=== PATIENT | male | born 1990 | race Two or more races ===

== ENCOUNTER 2021-12-29 04:27 | Inpatient (IN) | payer OTHER ==
[2021-12-29] MEDS ORDERED: MAG HYDROX/AL HYDROX/SIMETH 30 ML UNIT-DOSE CUP PO PRN (04:34)
[2021-12-29] MEDS ORDERED: MAGNESIUM CITRATE 300 ML BOTTLE PO PRN (04:34)
[2021-12-29] MEDS ORDERED: MAGNESIUM HYDROX 2400MG/30ML ORAL SUSPENSION 30 ML CUP PO PRN (04:34)
[2021-12-29] MEDS ORDERED: DICYCLOMINE HCL 10 MG CAPSULE PO PRN (04:34)
[2021-12-29] MEDS ORDERED: P-EPHED 60MG/TRIPROLIDI 2.5MG TABLET PO PRN (04:34)
[2021-12-29] MEDS ORDERED: NICOTINE POLACRILEX 2 MG GUM BUC PRN (04:34)
[2021-12-29] MEDS ORDERED: ONDANSETRON *ODT* 4 MG TABLET SL PRN (04:34)
[2021-12-29] MEDS ORDERED: BENZOCAINE/MENTHOL (CHLORASEPTIC ) LOZENGE MM PRN (04:34)
[2021-12-29] MEDS ORDERED: ACETAMINOPHEN 325 MG TABLET (FP) PO PRN (04:34)
[2021-12-29] MEDS ORDERED: BISMUTH SUBSALICYLATE 524 MG/30 ML PO PRN (04:34)
[2021-12-29] MEDS ORDERED: LOPERAMIDE HCL 2 MG CAPSULE PO PRN (04:34)
[2021-12-29] MEDS ORDERED: guaiFENesin 200 MG/10 ML 10 ML UNIT-DOSE CUPS PO PRN (04:34)
[2021-12-29 07:10] VITALS: BMI 22.3
[2021-12-29] MEDS ORDERED: methaDONE HCL 10 MG TABLET PO SCH (09:30)
[2021-12-29] MEDS ORDERED: chlordiazePOXIDE HCL 25 MG CAPSULE PO PRN (09:53)
[2021-12-29] MEDS ORDERED: methaDONE HCL 10 MG TABLET ONE (09:53)
[2021-12-29] MEDS ORDERED: methaDONE HCL 40 MG DISPERSABLE TABLET ONE (09:53)
[2021-12-29] MEDS ORDERED: ALBUTEROL SO4 HFA INHALER IH PRN (09:53)
[2021-12-29] MEDS: methaDONE 40 MG, methaDONE 30 MG PO SCH (10:21)
[2021-12-29] MEDS: PRENATAL VITAMINS W/ FOLIC ACID TABLET (FP) PO SCH (10:21)
[2021-12-29] MEDS: NICOTINE 14 MG/24 HOURS TOPICAL PATCH TD SCH (10:21)
[2021-12-29] MEDS: BICTEGRAV/EMTRICIT/TENOFOV (BIKTARVY) 50-200-25 MG TABLET PO SCH (11:57)
[2021-12-29] MEDS: chlordiazePOXIDE HCL 25 MG CAPSULE PO SCH ×3 (11:57→22:35)
[2021-12-29] MEDS: MELATONIN 5 MG TABLETS PO SCH (22:35)
[2021-12-29] MEDS: THIAMINE HCL 100 MG TABLET (FP) PO SCH (22:35)
[2021-12-30] MEDS ORDERED: methaDONE HCL 10 MG TABLET ONE (04:47)
[2021-12-30] MEDS ORDERED: methaDONE HCL 40 MG DISPERSABLE TABLET ONE (04:48)
[2021-12-30] MEDS: chlordiazePOXIDE HCL 25 MG CAPSULE PO SCH ×4 (05:31→22:53)
[2021-12-30] MEDS: methaDONE 40 MG, methaDONE 30 MG PO SCH (05:33)
[2021-12-30] MEDS ORDERED: OLANZapine 10 MG TABLET PO SCH (10:00)
[2021-12-30] MEDS: PRENATAL VITAMINS W/ FOLIC ACID TABLET (FP) PO SCH (10:22)
[2021-12-30] MEDS: BICTEGRAV/EMTRICIT/TENOFOV (BIKTARVY) 50-200-25 MG TABLET PO SCH (10:22)
[2021-12-30] MEDS: NICOTINE 14 MG/24 HOURS TOPICAL PATCH TD SCH (10:22)
[2021-12-30 10:48] LABS: HEMATOCRIT 36.7 % (35.4-49); HEMOGLOBIN 11.9 GM/dL (11.7-16.9); MCH 29.7 pg (25.7-33.7); MCHC 32.5 g/dl (32.0-35.9); MEAN CELL VOLUME 91.5 fl (80-96); MEAN PLT VOLUME 8.6 fl (7.5-11.1); PLATELET COUNT 294 10^3/uL (134-434); RBC 4.01 M/mm3 (4.00-5.60); RDW 14.5 % (11.9-15.9); WHITE BLOOD COUNT 4.2 K/mm3 (4.0-10.0)
[2021-12-30 11:05] LABS: CALCIUM 8.8 mg/dL (8.5-10.1)
[2021-12-30 11:06] LABS: ALBUMIN 3.4 g/dl (3.4-5.0); BLOOD UREA NITROGEN 6.6 mg/dL (7-18)
[2021-12-30 11:09] LABS: BILIRUBIN,TOTAL 0.4 mg/dL (0.2-1); CREATININE 0.9 mg/dL (0.55-1.3); TOT PROT 6.6 g/dl (6.4-8.2)
[2021-12-30] MEDS: METHOCARBAMOL 500 MG TABLET PO PRN (14:47)
[2021-12-30] MEDS: IBUPROFEN 400 MG TABLET (FP) PO PRN (20:20)
[2021-12-30] MEDS: hydrOXYzine PAMOATE 25 MG CAPSULE (FP) PO PRN (20:21)
[2021-12-30] MEDS: THIAMINE HCL 100 MG TABLET (FP) PO SCH (22:56)
[2021-12-30] MEDS: MELATONIN 5 MG TABLETS PO SCH (22:56)
[2021-12-30] MEDS: OLANZapine 10 MG TABLET PO SCH (22:56)
[2021-12-31] MEDS ORDERED: methaDONE HCL 10 MG TABLET ONE (04:53)
[2021-12-31] MEDS ORDERED: methaDONE HCL 40 MG DISPERSABLE TABLET ONE (04:53)
[2021-12-31] MEDS: chlordiazePOXIDE HCL 25 MG CAPSULE PO SCH ×4 (05:40→22:13)
[2021-12-31] MEDS: methaDONE 40 MG, methaDONE 30 MG PO SCH (05:40)
[2021-12-31] MEDS: NICOTINE 14 MG/24 HOURS TOPICAL PATCH TD SCH (10:26)
[2021-12-31] MEDS: PRENATAL VITAMINS W/ FOLIC ACID TABLET (FP) PO SCH (10:26)
[2021-12-31] MEDS: BICTEGRAV/EMTRICIT/TENOFOV (BIKTARVY) 50-200-25 MG TABLET PO SCH (10:26)
[2021-12-31] MEDS: ACETAMINOPHEN 325 MG TABLET (FP) PO PRN (17:43)
[2021-12-31] MEDS: MELATONIN 5 MG TABLETS PO SCH (22:11)
[2021-12-31] MEDS: THIAMINE HCL 100 MG TABLET (FP) PO SCH (22:12)
[2021-12-31] MEDS: OLANZapine 10 MG TABLET PO SCH (22:12)
[2021-12-31] MEDS: IBUPROFEN 400 MG TABLET (FP) PO PRN (22:16)
[2021-12-31] MEDS: METHOCARBAMOL 500 MG TABLET PO PRN (22:16)
[2022-01-01] MEDS ORDERED: chlordiazePOXIDE HCL 10 MG CAPSULE PO PRN
[2022-01-01] MEDS ORDERED: methaDONE HCL 10 MG TABLET ONE (04:26)
[2022-01-01] MEDS ORDERED: methaDONE HCL 40 MG DISPERSABLE TABLET ONE (04:27)
[2022-01-01] MEDS ORDERED: chlordiazePOXIDE HCL 10 MG CAPSULE PO SCH (05:00)
[2022-01-01] MEDS: methaDONE 40 MG, methaDONE 30 MG PO SCH (05:11)
[2022-01-01] MEDS ORDERED: NICOTINE 10 MG CARTRIDGE (INHALER) IH PRN (09:01)
[2022-01-01] MEDS: BICTEGRAV/EMTRICIT/TENOFOV (BIKTARVY) 50-200-25 MG TABLET PO SCH (10:11)
[2022-01-01] MEDS: PRENATAL VITAMINS W/ FOLIC ACID TABLET (FP) PO SCH (10:11)
[2022-01-01] MEDS: NICOTINE 14 MG/24 HOURS TOPICAL PATCH TD SCH (10:12)
[2022-01-01] MEDS: diazePAM 5 MG TABLET PO SCH ×3 (14:58→22:07)
[2022-01-01] MEDS: OLANZapine 10 MG TABLET PO SCH (22:07)
[2022-01-01] MEDS: MELATONIN 5 MG TABLETS PO SCH (22:07)
[2022-01-01] MEDS: THIAMINE HCL 100 MG TABLET (FP) PO SCH (22:07)
[2022-01-02] MEDS ORDERED: methaDONE HCL 40 MG DISPERSABLE TABLET ONE (04:49)
[2022-01-02] MEDS ORDERED: methaDONE HCL 10 MG TABLET ONE (04:49)
[2022-01-02] MEDS ORDERED: chlordiazePOXIDE HCL 10 MG CAPSULE PO SCH (05:00)
[2022-01-02] MEDS: hydrOXYzine PAMOATE 25 MG CAPSULE (FP) PO PRN ×3 (05:22→22:07)
[2022-01-02] MEDS: methaDONE 40 MG, methaDONE 30 MG PO SCH (05:22)
[2022-01-02] MEDS: diazePAM 5 MG TABLET PO SCH ×3 (05:22→22:05)
[2022-01-02] MEDS: BICTEGRAV/EMTRICIT/TENOFOV (BIKTARVY) 50-200-25 MG TABLET PO SCH (09:19)
[2022-01-02] MEDS: PRENATAL VITAMINS W/ FOLIC ACID TABLET (FP) PO SCH (09:19)
[2022-01-02] MEDS: IBUPROFEN 600 MG TABLET (FP) PO PRN ×2 (09:20→16:24)
[2022-01-02] MEDS: NICOTINE 14 MG/24 HOURS TOPICAL PATCH TD SCH (09:23)
[2022-01-02] MEDS: METHOCARBAMOL 500 MG TABLET PO PRN (17:57)
[2022-01-02] MEDS: MELATONIN 5 MG TABLETS PO SCH (22:05)
[2022-01-02] MEDS: THIAMINE HCL 100 MG TABLET (FP) PO SCH (22:05)
[2022-01-02] MEDS: OLANZapine 10 MG TABLET PO SCH (22:05)
[2022-01-03] MEDS ORDERED: methaDONE HCL 10 MG TABLET ONE (04:36)
[2022-01-03] MEDS ORDERED: methaDONE HCL 40 MG DISPERSABLE TABLET ONE (04:37)
[2022-01-03] MEDS ORDERED: chlordiazePOXIDE HCL 10 MG CAPSULE PO ONE (05:00)
[2022-01-03] MEDS: methaDONE 40 MG, methaDONE 30 MG PO SCH (05:07)
[2022-01-03] MEDS: IBUPROFEN 400 MG TABLET (FP) PO PRN (05:09)
[2022-01-03] MEDS ORDERED: diazePAM 5 MG TABLET PO ONE (06:00)
[2022-01-03] MEDS: ACETAMINOPHEN 325 MG TABLET (FP) PO PRN (07:12)
[2022-01-03 09:35] VITALS: BP 122/74; PULSE 86; TEMP 96.9
[2022-01-03] MEDS: BICTEGRAV/EMTRICIT/TENOFOV (BIKTARVY) 50-200-25 MG TABLET PO SCH (10:09)
[2022-01-03] MEDS: PRENATAL VITAMINS W/ FOLIC ACID TABLET (FP) PO SCH (10:09)
[2022-01-03] MEDS: NICOTINE 14 MG/24 HOURS TOPICAL PATCH TD SCH (10:09)
== END 2022-01-03 10:38 | disposition home or self-care (01) | DRG 773 ==
LOC: YASAS 04:27 → UNDOADMIN 04:28 → Y3N 04:28 → UNDODISIN 01-03 10:38
PROVIDERS: ADMIT Allergy & Immunology; ATTEND Surgery
PROC: HZ2ZZZZ Detoxification Services for Substance Abuse Treatment (ICD-10-PCS; principal; 2021-12-29)
DX: F11.23 Opioid dependence with withdrawal (principal); F14.20 Cocaine dependence, uncomplicated; F15.20 Other stimulant dependence, uncomplicated; F12.20 Cannabis dependence, uncomplicated; F17.210 Nicotine dependence, cigarettes, uncomplicated; F19.24 Other psychoactive substance dependence with psychoactive substance-induced mood disorder; F31.9 Bipolar disorder, unspecified; F43.10 Post-traumatic stress disorder, unspecified; Z21 Asymptomatic human immunodeficiency virus [HIV] infection status; Z91.51 Personal history of suicidal behavior; Z91.19 Patient's noncompliance with other medical treatment and regimen
CPT/HCPCS: 36415; 80053; 85027; 86593; 86780; 87811; C9803-CS; U0003; U0005

== ENCOUNTER 2022-01-03 11:19 | Inpatient (IN) | payer OTHER ==
[2022-01-03 11:46] VITALS: BMI 23.0
[2022-01-03] MEDS ORDERED: MAG HYDROX/AL HYDROX/SIMETH 30 ML UNIT-DOSE CUP PO PRN (12:00)
[2022-01-03] MEDS ORDERED: guaiFENesin 200 MG/10 ML 10 ML UNIT-DOSE CUPS PO PRN (12:00)
[2022-01-03] MEDS ORDERED: MAGNESIUM HYDROX 2400MG/30ML ORAL SUSPENSION 30 ML CUP PO PRN (12:00)
[2022-01-03] MEDS ORDERED: ACETAMINOPHEN 325 MG TABLET (FP) PO PRN (12:00)
[2022-01-03] MEDS ORDERED: P-EPHED 60MG/TRIPROLIDI 2.5MG TABLET PO PRN (12:00)
[2022-01-03] MEDS ORDERED: MAGNESIUM CITRATE 300 ML BOTTLE PO PRN (12:00)
[2022-01-03] MEDS ORDERED: LOPERAMIDE HCL 2 MG CAPSULE PO PRN (12:00)
[2022-01-03] MEDS: hydrOXYzine PAMOATE 25 MG CAPSULE (FP) PO SCH ×3 (14:00→21:01)
[2022-01-03] MEDS: NICOTINE 10 MG CARTRIDGE (INHALER) IH PRN (14:01)
[2022-01-03] MEDS: MELATONIN 5 MG TABLETS PO SCH (21:01)
[2022-01-03] MEDS: THIAMINE HCL 100 MG TABLET (FP) PO SCH (21:01)
[2022-01-04] MEDS: hydrOXYzine PAMOATE 25 MG CAPSULE (FP) PO SCH (06:02)
[2022-01-04] MEDS ORDERED: methaDONE HCL 10 MG TABLET ONE (07:13)
[2022-01-04] MEDS ORDERED: methaDONE HCL 40 MG DISPERSABLE TABLET ONE (07:13)
[2022-01-04] MEDS: methaDONE 40 MG, methaDONE 30 MG PO SCH (07:13)
[2022-01-04] MEDS: IBUPROFEN 400 MG TABLET (FP) PO PRN ×2 (10:23→19:05)
[2022-01-04] MEDS: CITALOPRAM HYDROBROMIDE 20 MG TABLET PO SCH (10:25)
[2022-01-04] MEDS: PRENATAL VITAMINS W/ FOLIC ACID TABLET (FP) PO SCH (10:25)
[2022-01-04] MEDS: OLANZapine 10 MG TABLET PO SCH (10:25)
[2022-01-04] MEDS: BICTEGRAV/EMTRICIT/TENOFOV (BIKTARVY) 50-200-25 MG TABLET PO SCH (10:25)
[2022-01-04] MEDS: NICOTINE 7 MG/24 HOURS TOPICAL PATCH TD SCH (10:26)
[2022-01-04] MEDS: NICOTINE 10 MG CARTRIDGE (INHALER) IH PRN (10:26)
[2022-01-04 11:43] LABS: URINE APPEARANCE CLEAR; URINE BILIRUBIN NEGATIVE (NEGATIVE); URINE COLOR YELLOW; URINE GLUCOSE (UA) NEGATIVE (NEGATIVE); URINE KETONE NEGATIVE (NEGATIVE); URINE LEUK ESTERASE NEGATIVE (NEGATIVE); URINE NITRITE NEGATIVE (NEGATIVE); URINE PROTEIN NEGATIVE (NEGATIVE); URINE UROBILINOGEN 0.2 mg/dL (0.2-1.0)
[2022-01-04] MEDS: diazePAM 5 MG TABLET PO SCH (14:01)
[2022-01-04] MEDS: MELATONIN 5 MG TABLETS PO SCH (21:18)
[2022-01-04] MEDS: THIAMINE HCL 100 MG TABLET (FP) PO SCH (21:18)
[2022-01-04] MEDS: GABAPENTIN 400 MG CAPSULE PO SCH (21:18)
[2022-01-04] MEDS: cloNIDine HCL 0.1 MG TABLET PO SCH (21:19)
[2022-01-05] MEDS ORDERED: methaDONE HCL 10 MG TABLET ONE (02:42)
[2022-01-05] MEDS ORDERED: methaDONE HCL 40 MG DISPERSABLE TABLET ONE (02:42)
[2022-01-05] MEDS: methaDONE 40 MG, methaDONE 30 MG PO SCH (06:15)
[2022-01-05] MEDS: BICTEGRAV/EMTRICIT/TENOFOV (BIKTARVY) 50-200-25 MG TABLET PO SCH (09:39)
[2022-01-05] MEDS: diazePAM 5 MG TABLET PO SCH (09:39)
[2022-01-05] MEDS: OLANZapine 10 MG TABLET PO SCH (09:39)
[2022-01-05] MEDS: CITALOPRAM HYDROBROMIDE 20 MG TABLET PO SCH (09:40)
[2022-01-05] MEDS: PRENATAL VITAMINS W/ FOLIC ACID TABLET (FP) PO SCH (09:40)
[2022-01-05] MEDS: NICOTINE 7 MG/24 HOURS TOPICAL PATCH TD SCH (09:40)
[2022-01-05] MEDS: NICOTINE 10 MG CARTRIDGE (INHALER) IH PRN (09:42)
[2022-01-05] MEDS: IBUPROFEN 400 MG TABLET (FP) PO PRN (16:58)
[2022-01-05] MEDS: cloNIDine HCL 0.1 MG TABLET PO SCH (21:01)
[2022-01-05] MEDS: GABAPENTIN 400 MG CAPSULE PO SCH (21:02)
[2022-01-05] MEDS: THIAMINE HCL 100 MG TABLET (FP) PO SCH (21:02)
[2022-01-05] MEDS: MELATONIN 5 MG TABLETS PO SCH (21:02)
[2022-01-06] MEDS ORDERED: methaDONE HCL 10 MG TABLET ONE (04:42)
[2022-01-06] MEDS ORDERED: methaDONE HCL 40 MG DISPERSABLE TABLET ONE (04:42)
[2022-01-06] MEDS: methaDONE 40 MG, methaDONE 30 MG PO SCH (06:26)
[2022-01-06] MEDS: IBUPROFEN 400 MG TABLET (FP) PO PRN (08:43)
[2022-01-06] MEDS: NICOTINE 7 MG/24 HOURS TOPICAL PATCH TD SCH (10:10)
[2022-01-06] MEDS: CITALOPRAM HYDROBROMIDE 20 MG TABLET PO SCH (10:12)
[2022-01-06] MEDS: BICTEGRAV/EMTRICIT/TENOFOV (BIKTARVY) 50-200-25 MG TABLET PO SCH (10:12)
[2022-01-06] MEDS: PRENATAL VITAMINS W/ FOLIC ACID TABLET (FP) PO SCH (10:12)
[2022-01-06] MEDS: diazePAM 5 MG TABLET PO SCH (10:12)
[2022-01-06] MEDS: OLANZapine 10 MG TABLET PO SCH (10:12)
[2022-01-06] MEDS: GABAPENTIN 400 MG CAPSULE PO SCH (21:02)
[2022-01-06] MEDS: MELATONIN 5 MG TABLETS PO SCH (21:02)
[2022-01-06] MEDS: cloNIDine HCL 0.1 MG TABLET PO SCH (21:02)
[2022-01-06] MEDS: THIAMINE HCL 100 MG TABLET (FP) PO SCH (21:02)
[2022-01-07] MEDS ORDERED: methaDONE HCL 40 MG DISPERSABLE TABLET ONE (05:02)
[2022-01-07] MEDS ORDERED: methaDONE HCL 10 MG TABLET ONE (05:02)
[2022-01-07] MEDS: methaDONE 40 MG, methaDONE 30 MG PO SCH (06:01)
[2022-01-07] MEDS: IBUPROFEN 400 MG TABLET (FP) PO PRN (08:21)
[2022-01-07] MEDS: BICTEGRAV/EMTRICIT/TENOFOV (BIKTARVY) 50-200-25 MG TABLET PO SCH (10:00)
[2022-01-07] MEDS: CITALOPRAM HYDROBROMIDE 20 MG TABLET PO SCH (10:01)
[2022-01-07] MEDS: PRENATAL VITAMINS W/ FOLIC ACID TABLET (FP) PO SCH (10:01)
[2022-01-07] MEDS: OLANZapine 10 MG TABLET PO SCH (10:01)
[2022-01-07] MEDS: diazePAM 5 MG TABLET PO SCH (10:01)
[2022-01-07] MEDS: NICOTINE 10 MG CARTRIDGE (INHALER) IH PRN (10:03)
[2022-01-07] MEDS: NICOTINE 7 MG/24 HOURS TOPICAL PATCH TD SCH (10:03)
[2022-01-07] MEDS: GABAPENTIN 400 MG CAPSULE PO SCH (21:10)
[2022-01-07] MEDS: cloNIDine HCL 0.1 MG TABLET PO SCH (21:10)
[2022-01-07] MEDS: MELATONIN 5 MG TABLETS PO SCH (21:10)
[2022-01-07] MEDS: THIAMINE HCL 100 MG TABLET (FP) PO SCH (21:10)
[2022-01-08] MEDS ORDERED: methaDONE HCL 10 MG TABLET ONE (03:19)
[2022-01-08] MEDS ORDERED: methaDONE HCL 40 MG DISPERSABLE TABLET ONE (03:19)
[2022-01-08] MEDS: methaDONE 40 MG, methaDONE 30 MG PO SCH (06:05)
[2022-01-08] MEDS: IBUPROFEN 400 MG TABLET (FP) PO PRN (06:07)
[2022-01-08] MEDS: PRENATAL VITAMINS W/ FOLIC ACID TABLET (FP) PO SCH (09:39)
[2022-01-08] MEDS: diazePAM 5 MG TABLET PO SCH (09:40)
[2022-01-08] MEDS: BICTEGRAV/EMTRICIT/TENOFOV (BIKTARVY) 50-200-25 MG TABLET PO SCH (09:40)
[2022-01-08] MEDS: NICOTINE 7 MG/24 HOURS TOPICAL PATCH TD SCH (09:41)
[2022-01-08] MEDS: NICOTINE 10 MG CARTRIDGE (INHALER) IH PRN (09:43)
[2022-01-08] MEDS: CITALOPRAM HYDROBROMIDE 20 MG TABLET PO SCH (12:13)
[2022-01-08] MEDS: OLANZapine 10 MG TABLET PO SCH (12:13)
[2022-01-08] MEDS: cloNIDine HCL 0.1 MG TABLET PO SCH (21:09)
[2022-01-08] MEDS: GABAPENTIN 400 MG CAPSULE PO SCH (21:10)
[2022-01-08] MEDS: MELATONIN 5 MG TABLETS PO SCH (21:10)
[2022-01-08] MEDS: THIAMINE HCL 100 MG TABLET (FP) PO SCH (21:10)
[2022-01-09] MEDS ORDERED: methaDONE HCL 10 MG TABLET ONE (05:17)
[2022-01-09] MEDS ORDERED: methaDONE HCL 40 MG DISPERSABLE TABLET ONE (05:18)
[2022-01-09] MEDS: methaDONE 40 MG, methaDONE 30 MG PO SCH (06:01)
[2022-01-09] MEDS: IBUPROFEN 400 MG TABLET (FP) PO PRN ×2 (06:04→21:11)
[2022-01-09] MEDS: BICTEGRAV/EMTRICIT/TENOFOV (BIKTARVY) 50-200-25 MG TABLET PO SCH (10:26)
[2022-01-09] MEDS: CITALOPRAM HYDROBROMIDE 20 MG TABLET PO SCH (10:26)
[2022-01-09] MEDS: PRENATAL VITAMINS W/ FOLIC ACID TABLET (FP) PO SCH (10:26)
[2022-01-09] MEDS: diazePAM 5 MG TABLET PO SCH (10:26)
[2022-01-09] MEDS: OLANZapine 10 MG TABLET PO SCH (10:26)
[2022-01-09] MEDS: NICOTINE 7 MG/24 HOURS TOPICAL PATCH TD SCH (10:57)
[2022-01-09] MEDS: MELATONIN 5 MG TABLETS PO SCH (21:10)
[2022-01-09] MEDS: THIAMINE HCL 100 MG TABLET (FP) PO SCH (21:10)
[2022-01-09] MEDS: cloNIDine HCL 0.1 MG TABLET PO SCH (21:10)
[2022-01-09] MEDS: GABAPENTIN 400 MG CAPSULE PO SCH (21:10)
[2022-01-10] MEDS ORDERED: methaDONE HCL 40 MG DISPERSABLE TABLET ONE (04:02)
[2022-01-10] MEDS ORDERED: methaDONE HCL 10 MG TABLET ONE (04:02)
[2022-01-10] MEDS: methaDONE 40 MG, methaDONE 30 MG PO SCH (06:04)
[2022-01-10] MEDS: IBUPROFEN 400 MG TABLET (FP) PO PRN ×2 (07:14→18:50)
[2022-01-10] MEDS: NICOTINE 10 MG CARTRIDGE (INHALER) IH PRN ×2 (08:48→21:15)
[2022-01-10] MEDS: CITALOPRAM HYDROBROMIDE 20 MG TABLET PO SCH (10:14)
[2022-01-10] MEDS: diazePAM 5 MG TABLET PO SCH (10:14)
[2022-01-10] MEDS: NICOTINE 7 MG/24 HOURS TOPICAL PATCH TD SCH (10:14)
[2022-01-10] MEDS: PRENATAL VITAMINS W/ FOLIC ACID TABLET (FP) PO SCH (10:14)
[2022-01-10] MEDS: BICTEGRAV/EMTRICIT/TENOFOV (BIKTARVY) 50-200-25 MG TABLET PO SCH (10:14)
[2022-01-10] MEDS: MELATONIN 5 MG TABLETS PO SCH (21:14)
[2022-01-10] MEDS: THIAMINE HCL 100 MG TABLET (FP) PO SCH (21:14)
[2022-01-10] MEDS: cloNIDine HCL 0.1 MG TABLET PO SCH (21:15)
[2022-01-10] MEDS: OLANZapine 10 MG TABLET PO SCH (21:15)
[2022-01-10] MEDS: GABAPENTIN 400 MG CAPSULE PO SCH (21:15)
[2022-01-11] MEDS ORDERED: methaDONE HCL 10 MG TABLET PO SCH (06:15)
[2022-01-11] MEDS ORDERED: methaDONE HCL 40 MG DISPERSABLE TABLET ONE (07:06)
[2022-01-11] MEDS ORDERED: methaDONE HCL 10 MG TABLET ONE (07:06)
[2022-01-11] MEDS: methaDONE 40 MG, methaDONE 30 MG PO SCH (07:09)
[2022-01-11] MEDS: NICOTINE 10 MG CARTRIDGE (INHALER) IH PRN (10:39)
[2022-01-11] MEDS: CITALOPRAM HYDROBROMIDE 20 MG TABLET PO SCH (10:40)
[2022-01-11] MEDS: PRENATAL VITAMINS W/ FOLIC ACID TABLET (FP) PO SCH (10:40)
[2022-01-11] MEDS: BICTEGRAV/EMTRICIT/TENOFOV (BIKTARVY) 50-200-25 MG TABLET PO SCH (10:40)
[2022-01-11] MEDS: NICOTINE 7 MG/24 HOURS TOPICAL PATCH TD SCH (10:40)
[2022-01-11] MEDS: diazePAM 5 MG TABLET PO SCH (10:40)
[2022-01-11] MEDS: hydrOXYzine PAMOATE 50 MG CAPSULE (FP) PO PRN (19:38)
[2022-01-11] MEDS: cloNIDine HCL 0.1 MG TABLET PO SCH (21:04)
[2022-01-11] MEDS: OLANZapine 10 MG TABLET PO SCH (21:04)
[2022-01-11] MEDS: GABAPENTIN 400 MG CAPSULE PO SCH (21:05)
[2022-01-11] MEDS: THIAMINE HCL 100 MG TABLET (FP) PO SCH (21:05)
[2022-01-11] MEDS: MELATONIN 5 MG TABLETS PO SCH (21:05)
[2022-01-12] MEDS ORDERED: methaDONE HCL 10 MG TABLET ONE (05:42)
[2022-01-12] MEDS ORDERED: methaDONE HCL 40 MG DISPERSABLE TABLET ONE (05:42)
[2022-01-12] MEDS: methaDONE 40 MG, methaDONE 30 MG PO SCH (06:04)
[2022-01-12] MEDS: NICOTINE 10 MG CARTRIDGE (INHALER) IH PRN ×2 (06:06→10:36)
[2022-01-12] MEDS: IBUPROFEN 400 MG TABLET (FP) PO PRN (06:07)
[2022-01-12] MEDS: NICOTINE 7 MG/24 HOURS TOPICAL PATCH TD SCH (10:35)
[2022-01-12] MEDS: BICTEGRAV/EMTRICIT/TENOFOV (BIKTARVY) 50-200-25 MG TABLET PO SCH (10:35)
[2022-01-12] MEDS: CITALOPRAM HYDROBROMIDE 20 MG TABLET PO SCH (10:35)
[2022-01-12] MEDS: PRENATAL VITAMINS W/ FOLIC ACID TABLET (FP) PO SCH (10:35)
[2022-01-12] MEDS: diazePAM 5 MG TABLET PO SCH (10:58)
[2022-01-12] MEDS: MELATONIN 5 MG TABLETS PO SCH (21:03)
[2022-01-12] MEDS: THIAMINE HCL 100 MG TABLET (FP) PO SCH (21:03)
[2022-01-12] MEDS: GABAPENTIN 400 MG CAPSULE PO SCH (21:04)
[2022-01-12] MEDS: OLANZapine 10 MG TABLET PO SCH (21:04)
[2022-01-12] MEDS: cloNIDine HCL 0.1 MG TABLET PO SCH (21:04)
[2022-01-13] MEDS ORDERED: methaDONE HCL 10 MG TABLET ONE (03:22)
[2022-01-13] MEDS ORDERED: methaDONE HCL 40 MG DISPERSABLE TABLET ONE (03:22)
[2022-01-13] MEDS: methaDONE 40 MG, methaDONE 30 MG PO SCH (06:05)
[2022-01-13] MEDS: PRENATAL VITAMINS W/ FOLIC ACID TABLET (FP) PO SCH (10:41)
[2022-01-13] MEDS: diazePAM 5 MG TABLET PO SCH (10:41)
[2022-01-13] MEDS: BICTEGRAV/EMTRICIT/TENOFOV (BIKTARVY) 50-200-25 MG TABLET PO SCH (10:41)
[2022-01-13] MEDS: NICOTINE 7 MG/24 HOURS TOPICAL PATCH TD SCH (10:42)
[2022-01-13] MEDS: CITALOPRAM HYDROBROMIDE 20 MG TABLET PO SCH (10:42)
[2022-01-13] MEDS: NICOTINE 10 MG CARTRIDGE (INHALER) IH PRN (10:43)
[2022-01-13] MEDS: IBUPROFEN 400 MG TABLET (FP) PO PRN (19:18)
[2022-01-13] MEDS: OLANZapine 10 MG TABLET PO SCH (21:26)
[2022-01-13] MEDS: THIAMINE HCL 100 MG TABLET (FP) PO SCH (21:26)
[2022-01-13] MEDS: GABAPENTIN 400 MG CAPSULE PO SCH (21:26)
[2022-01-13] MEDS: MELATONIN 5 MG TABLETS PO SCH (21:27)
[2022-01-13] MEDS: cloNIDine HCL 0.1 MG TABLET PO SCH (21:27)
[2022-01-14] MEDS ORDERED: methaDONE HCL 40 MG DISPERSABLE TABLET ONE (03:07)
[2022-01-14] MEDS ORDERED: methaDONE HCL 10 MG TABLET ONE (03:07)
[2022-01-14] MEDS: methaDONE 40 MG, methaDONE 30 MG PO SCH (06:17)
[2022-01-14] MEDS: NICOTINE 10 MG CARTRIDGE (INHALER) IH PRN (06:36)
[2022-01-14] MEDS: diazePAM 5 MG TABLET PO SCH (09:46)
[2022-01-14] MEDS: BICTEGRAV/EMTRICIT/TENOFOV (BIKTARVY) 50-200-25 MG TABLET PO SCH (09:46)
[2022-01-14] MEDS: CITALOPRAM HYDROBROMIDE 20 MG TABLET PO SCH (09:46)
[2022-01-14] MEDS: PRENATAL VITAMINS W/ FOLIC ACID TABLET (FP) PO SCH (09:46)
[2022-01-14] MEDS: NICOTINE 7 MG/24 HOURS TOPICAL PATCH TD SCH (09:47)
[2022-01-14] MEDS: IBUPROFEN 400 MG TABLET (FP) PO PRN (18:18)
[2022-01-14] MEDS: GABAPENTIN 400 MG CAPSULE PO SCH (21:00)
[2022-01-14] MEDS: THIAMINE HCL 100 MG TABLET (FP) PO SCH (21:01)
[2022-01-14] MEDS: MELATONIN 5 MG TABLETS PO SCH (21:01)
[2022-01-14] MEDS: cloNIDine HCL 0.1 MG TABLET PO SCH (21:01)
[2022-01-14] MEDS: OLANZapine 10 MG TABLET PO SCH (23:07)
[2022-01-15] MEDS ORDERED: methaDONE HCL 10 MG TABLET ONE (03:04)
[2022-01-15] MEDS ORDERED: methaDONE HCL 40 MG DISPERSABLE TABLET ONE (03:04)
[2022-01-15] MEDS: methaDONE 40 MG, methaDONE 30 MG PO SCH (05:49)
[2022-01-15] MEDS: diazePAM 5 MG TABLET PO SCH (10:08)
[2022-01-15] MEDS: BICTEGRAV/EMTRICIT/TENOFOV (BIKTARVY) 50-200-25 MG TABLET PO SCH (10:08)
[2022-01-15] MEDS: CITALOPRAM HYDROBROMIDE 20 MG TABLET PO SCH (10:08)
[2022-01-15] MEDS: PRENATAL VITAMINS W/ FOLIC ACID TABLET (FP) PO SCH (10:08)
[2022-01-15] MEDS: NICOTINE 7 MG/24 HOURS TOPICAL PATCH TD SCH (10:09)
[2022-01-15] MEDS: NICOTINE 10 MG CARTRIDGE (INHALER) IH PRN (10:10)
[2022-01-15] MEDS: OLANZapine 10 MG TABLET PO SCH (21:01)
[2022-01-15] MEDS: GABAPENTIN 400 MG CAPSULE PO SCH (21:01)
[2022-01-15] MEDS: MELATONIN 5 MG TABLETS PO SCH (21:01)
[2022-01-15] MEDS: cloNIDine HCL 0.1 MG TABLET PO SCH (21:01)
[2022-01-15] MEDS: THIAMINE HCL 100 MG TABLET (FP) PO SCH (21:01)
[2022-01-16] MEDS ORDERED: methaDONE HCL 10 MG TABLET ONE (02:56)
[2022-01-16] MEDS ORDERED: methaDONE HCL 40 MG DISPERSABLE TABLET ONE (02:56)
[2022-01-16] MEDS: methaDONE 40 MG, methaDONE 30 MG PO SCH (06:04)
[2022-01-16] MEDS: PRENATAL VITAMINS W/ FOLIC ACID TABLET (FP) PO SCH (10:36)
[2022-01-16] MEDS: diazePAM 5 MG TABLET PO SCH (10:36)
[2022-01-16] MEDS: BICTEGRAV/EMTRICIT/TENOFOV (BIKTARVY) 50-200-25 MG TABLET PO SCH (10:36)
[2022-01-16] MEDS: NICOTINE 7 MG/24 HOURS TOPICAL PATCH TD SCH (10:37)
[2022-01-16] MEDS: CITALOPRAM HYDROBROMIDE 20 MG TABLET PO SCH (10:37)
[2022-01-16] MEDS: NICOTINE 10 MG CARTRIDGE (INHALER) IH PRN ×2 (10:39→19:29)
[2022-01-16] MEDS: IBUPROFEN 400 MG TABLET (FP) PO PRN (11:54)
[2022-01-16] MEDS: hydrOXYzine PAMOATE 50 MG CAPSULE (FP) PO PRN (18:07)
[2022-01-16] MEDS: OLANZapine 10 MG TABLET PO SCH (21:03)
[2022-01-16] MEDS: cloNIDine HCL 0.1 MG TABLET PO SCH (21:03)
[2022-01-16] MEDS: GABAPENTIN 400 MG CAPSULE PO SCH (21:03)
[2022-01-16] MEDS: THIAMINE HCL 100 MG TABLET (FP) PO SCH (21:03)
[2022-01-16] MEDS: MELATONIN 5 MG TABLETS PO SCH (21:03)
[2022-01-17] MEDS ORDERED: methaDONE HCL 10 MG TABLET ONE (02:22)
[2022-01-17] MEDS ORDERED: methaDONE HCL 40 MG DISPERSABLE TABLET ONE (02:23)
[2022-01-17] MEDS: methaDONE 40 MG, methaDONE 30 MG PO SCH (06:14)
[2022-01-17] MEDS: NICOTINE 7 MG/24 HOURS TOPICAL PATCH TD SCH (10:27)
[2022-01-17] MEDS: CITALOPRAM HYDROBROMIDE 20 MG TABLET PO SCH (10:28)
[2022-01-17] MEDS: BICTEGRAV/EMTRICIT/TENOFOV (BIKTARVY) 50-200-25 MG TABLET PO SCH (10:28)
[2022-01-17] MEDS: diazePAM 5 MG TABLET PO SCH (10:28)
[2022-01-17] MEDS: PRENATAL VITAMINS W/ FOLIC ACID TABLET (FP) PO SCH (10:28)
[2022-01-17] MEDS: hydrOXYzine PAMOATE 50 MG CAPSULE (FP) PO PRN (15:09)
[2022-01-17] MEDS: GABAPENTIN 400 MG CAPSULE PO SCH (21:00)
[2022-01-17] MEDS: THIAMINE HCL 100 MG TABLET (FP) PO SCH (21:00)
[2022-01-17] MEDS: cloNIDine HCL 0.1 MG TABLET PO SCH (21:00)
[2022-01-17] MEDS: OLANZapine 10 MG TABLET PO SCH (21:00)
[2022-01-17] MEDS: MELATONIN 5 MG TABLETS PO SCH (21:00)
[2022-01-18] MEDS: methaDONE 40 MG, methaDONE 30 MG PO SCH (06:09)
[2022-01-18] MEDS ORDERED: methaDONE HCL 10 MG TABLET ONE (06:09)
[2022-01-18] MEDS ORDERED: methaDONE HCL 40 MG DISPERSABLE TABLET ONE (06:09)
[2022-01-18] MEDS: hydrOXYzine PAMOATE 50 MG CAPSULE (FP) PO PRN (08:43)
[2022-01-18] MEDS: BICTEGRAV/EMTRICIT/TENOFOV (BIKTARVY) 50-200-25 MG TABLET PO SCH (09:46)
[2022-01-18] MEDS: PRENATAL VITAMINS W/ FOLIC ACID TABLET (FP) PO SCH (09:46)
[2022-01-18] MEDS: CITALOPRAM HYDROBROMIDE 20 MG TABLET PO SCH (09:47)
[2022-01-18] MEDS: diazePAM 5 MG TABLET PO SCH (09:48)
[2022-01-18] MEDS: NICOTINE 7 MG/24 HOURS TOPICAL PATCH TD SCH (09:49)
[2022-01-18] MEDS: NICOTINE 10 MG CARTRIDGE (INHALER) IH PRN (11:06)
[2022-01-18] MEDS: MELATONIN 5 MG TABLETS PO SCH (21:00)
[2022-01-18] MEDS: GABAPENTIN 400 MG CAPSULE PO SCH (21:00)
[2022-01-18] MEDS: OLANZapine 10 MG TABLET PO SCH (21:00)
[2022-01-18] MEDS: cloNIDine HCL 0.1 MG TABLET PO SCH (21:00)
[2022-01-18] MEDS: THIAMINE HCL 100 MG TABLET (FP) PO SCH (21:00)
[2022-01-19] MEDS ORDERED: methaDONE HCL 10 MG TABLET PO SCH (06:00)
[2022-01-19] MEDS: methaDONE 40 MG, methaDONE 30 MG PO SCH (06:09)
[2022-01-19] MEDS ORDERED: methaDONE HCL 40 MG DISPERSABLE TABLET ONE (06:09)
[2022-01-19] MEDS ORDERED: methaDONE HCL 10 MG TABLET ONE (06:09)
[2022-01-19] MEDS: IBUPROFEN 400 MG TABLET (FP) PO PRN (06:12)
[2022-01-19] MEDS: CITALOPRAM HYDROBROMIDE 20 MG TABLET PO SCH (09:42)
[2022-01-19] MEDS: BICTEGRAV/EMTRICIT/TENOFOV (BIKTARVY) 50-200-25 MG TABLET PO SCH (09:42)
[2022-01-19] MEDS: NICOTINE 7 MG/24 HOURS TOPICAL PATCH TD SCH (09:43)
[2022-01-19] MEDS: PRENATAL VITAMINS W/ FOLIC ACID TABLET (FP) PO SCH (09:43)
[2022-01-19] MEDS: NICOTINE 10 MG CARTRIDGE (INHALER) IH PRN (11:04)
[2022-01-19] MEDS: MELATONIN 5 MG TABLETS PO SCH (21:01)
[2022-01-19] MEDS: THIAMINE HCL 100 MG TABLET (FP) PO SCH (21:01)
[2022-01-19] MEDS: OLANZapine 10 MG TABLET PO SCH (21:01)
[2022-01-19] MEDS: GABAPENTIN 400 MG CAPSULE PO SCH (21:01)
[2022-01-19] MEDS: cloNIDine HCL 0.1 MG TABLET PO SCH (21:01)
[2022-01-20] MEDS ORDERED: methaDONE HCL 40 MG DISPERSABLE TABLET ONE (03:09)
[2022-01-20] MEDS ORDERED: methaDONE HCL 10 MG TABLET ONE (03:09)
[2022-01-20] MEDS: methaDONE 40 MG, methaDONE 30 MG PO SCH (06:36)
[2022-01-20] MEDS: PRENATAL VITAMINS W/ FOLIC ACID TABLET (FP) PO SCH (10:11)
[2022-01-20] MEDS: NICOTINE 10 MG CARTRIDGE (INHALER) IH PRN (10:11)
[2022-01-20] MEDS: NICOTINE 7 MG/24 HOURS TOPICAL PATCH TD SCH (10:11)
[2022-01-20] MEDS: CITALOPRAM HYDROBROMIDE 20 MG TABLET PO SCH (10:11)
[2022-01-20] MEDS: BICTEGRAV/EMTRICIT/TENOFOV (BIKTARVY) 50-200-25 MG TABLET PO SCH (10:12)
[2022-01-20] MEDS: hydrOXYzine PAMOATE 50 MG CAPSULE (FP) PO PRN (11:45)
[2022-01-20] MEDS: diazePAM 5 MG TABLET PO SCH (12:46)
[2022-01-20] MEDS: MELATONIN 5 MG TABLETS PO SCH (21:08)
[2022-01-20] MEDS: OLANZapine 10 MG TABLET PO SCH (21:08)
[2022-01-20] MEDS: THIAMINE HCL 100 MG TABLET (FP) PO SCH (21:08)
[2022-01-20] MEDS: cloNIDine HCL 0.1 MG TABLET PO SCH (21:08)
[2022-01-20] MEDS: GABAPENTIN 400 MG CAPSULE PO SCH (21:08)
[2022-01-20] MEDS: IBUPROFEN 400 MG TABLET (FP) PO PRN (21:37)
[2022-01-21] MEDS ORDERED: methaDONE HCL 40 MG DISPERSABLE TABLET ONE (04:00)
[2022-01-21] MEDS ORDERED: methaDONE HCL 10 MG TABLET ONE (04:00)
[2022-01-21] MEDS: methaDONE 40 MG, methaDONE 30 MG PO SCH (05:58)
[2022-01-21] MEDS: diazePAM 5 MG TABLET PO SCH (10:18)
[2022-01-21] MEDS: PRENATAL VITAMINS W/ FOLIC ACID TABLET (FP) PO SCH (10:18)
[2022-01-21] MEDS: BICTEGRAV/EMTRICIT/TENOFOV (BIKTARVY) 50-200-25 MG TABLET PO SCH (10:18)
[2022-01-21] MEDS: CITALOPRAM HYDROBROMIDE 20 MG TABLET PO SCH (10:18)
[2022-01-21] MEDS: NICOTINE 7 MG/24 HOURS TOPICAL PATCH TD SCH (10:18)
[2022-01-21] MEDS: GABAPENTIN 400 MG CAPSULE PO SCH (21:00)
[2022-01-21] MEDS: THIAMINE HCL 100 MG TABLET (FP) PO SCH (21:00)
[2022-01-21] MEDS: cloNIDine HCL 0.1 MG TABLET PO SCH (21:00)
[2022-01-21] MEDS: MELATONIN 5 MG TABLETS PO SCH (21:00)
[2022-01-21] MEDS: OLANZapine 10 MG TABLET PO SCH (21:00)
[2022-01-22] MEDS ORDERED: methaDONE HCL 40 MG DISPERSABLE TABLET ONE (03:50)
[2022-01-22] MEDS ORDERED: methaDONE HCL 10 MG TABLET ONE (03:50)
[2022-01-22] MEDS: methaDONE 40 MG, methaDONE 30 MG PO SCH (05:51)
[2022-01-22] MEDS: NICOTINE 10 MG CARTRIDGE (INHALER) IH PRN ×2 (05:54→09:56)
[2022-01-22] MEDS: CITALOPRAM HYDROBROMIDE 20 MG TABLET PO SCH (09:54)
[2022-01-22] MEDS: diazePAM 5 MG TABLET PO SCH (09:54)
[2022-01-22] MEDS: BICTEGRAV/EMTRICIT/TENOFOV (BIKTARVY) 50-200-25 MG TABLET PO SCH (09:54)
[2022-01-22] MEDS: PRENATAL VITAMINS W/ FOLIC ACID TABLET (FP) PO SCH (09:54)
[2022-01-22] MEDS: NICOTINE 7 MG/24 HOURS TOPICAL PATCH TD SCH (09:54)
[2022-01-22] MEDS: hydrOXYzine PAMOATE 50 MG CAPSULE (FP) PO PRN (19:48)
[2022-01-22] MEDS: IBUPROFEN 400 MG TABLET (FP) PO PRN (19:49)
[2022-01-22] MEDS: MELATONIN 5 MG TABLETS PO SCH (21:05)
[2022-01-22] MEDS: cloNIDine HCL 0.1 MG TABLET PO SCH (21:05)
[2022-01-22] MEDS: THIAMINE HCL 100 MG TABLET (FP) PO SCH (21:06)
[2022-01-22] MEDS: OLANZapine 5 MG TABLET PO SCH (21:06)
[2022-01-23] MEDS ORDERED: methaDONE HCL 10 MG TABLET ONE (06:15)
[2022-01-23] MEDS ORDERED: methaDONE HCL 40 MG DISPERSABLE TABLET ONE (06:15)
[2022-01-23] MEDS: methaDONE 40 MG, methaDONE 30 MG PO SCH (06:20)
[2022-01-23] MEDS: BICTEGRAV/EMTRICIT/TENOFOV (BIKTARVY) 50-200-25 MG TABLET PO SCH (09:48)
[2022-01-23] MEDS: hydrOXYzine PAMOATE 50 MG CAPSULE (FP) PO PRN (09:48)
[2022-01-23] MEDS: diazePAM 5 MG TABLET PO SCH (09:48)
[2022-01-23] MEDS: PRENATAL VITAMINS W/ FOLIC ACID TABLET (FP) PO SCH (09:49)
[2022-01-23] MEDS: NICOTINE 7 MG/24 HOURS TOPICAL PATCH TD SCH (09:49)
[2022-01-23] MEDS: NICOTINE 10 MG CARTRIDGE (INHALER) IH PRN (09:57)
[2022-01-23] MEDS: IBUPROFEN 400 MG TABLET (FP) PO PRN (10:45)
[2022-01-23] MEDS: CITALOPRAM HYDROBROMIDE 20 MG TABLET PO SCH (10:45)
[2022-01-23] MEDS ORDERED: GABAPENTIN 400 MG CAPSULE PO ONE (12:05)
[2022-01-23] MEDS: OLANZapine 5 MG TABLET PO SCH (21:01)
[2022-01-23] MEDS: MELATONIN 5 MG TABLETS PO SCH (21:01)
[2022-01-23] MEDS: GABAPENTIN 400 MG CAPSULE PO SCH (21:01)
[2022-01-23] MEDS: cloNIDine HCL 0.1 MG TABLET PO SCH (21:01)
[2022-01-23] MEDS: THIAMINE HCL 100 MG TABLET (FP) PO SCH (21:02)
[2022-01-24] MEDS ORDERED: methaDONE HCL 10 MG TABLET ONE (05:52)
[2022-01-24] MEDS: methaDONE 40 MG, methaDONE 30 MG PO SCH (05:53)
[2022-01-24] MEDS ORDERED: methaDONE HCL 40 MG DISPERSABLE TABLET ONE (05:53)
[2022-01-24] MEDS: diazePAM 5 MG TABLET PO SCH (10:01)
[2022-01-24] MEDS: CITALOPRAM HYDROBROMIDE 20 MG TABLET PO SCH (10:01)
[2022-01-24] MEDS: BICTEGRAV/EMTRICIT/TENOFOV (BIKTARVY) 50-200-25 MG TABLET PO SCH (10:01)
[2022-01-24] MEDS: GABAPENTIN 400 MG CAPSULE PO SCH ×2 (10:01→21:02)
[2022-01-24] MEDS: PRENATAL VITAMINS W/ FOLIC ACID TABLET (FP) PO SCH (10:01)
[2022-01-24] MEDS: NICOTINE 7 MG/24 HOURS TOPICAL PATCH TD SCH (10:02)
[2022-01-24] MEDS: NICOTINE 10 MG CARTRIDGE (INHALER) IH PRN (10:02)
[2022-01-24] MEDS: hydrOXYzine PAMOATE 50 MG CAPSULE (FP) PO PRN ×2 (12:04→16:35)
[2022-01-24] MEDS: IBUPROFEN 400 MG TABLET (FP) PO PRN (16:35)
[2022-01-24] MEDS: MELATONIN 5 MG TABLETS PO SCH (21:02)
[2022-01-24] MEDS: cloNIDine HCL 0.1 MG TABLET PO SCH (21:02)
[2022-01-24] MEDS: OLANZapine 5 MG TABLET PO SCH (21:02)
[2022-01-24] MEDS: THIAMINE HCL 100 MG TABLET (FP) PO SCH (21:02)
[2022-01-25] MEDS ORDERED: methaDONE HCL 10 MG TABLET ONE (05:47)
[2022-01-25] MEDS ORDERED: methaDONE HCL 40 MG DISPERSABLE TABLET ONE (05:47)
[2022-01-25] MEDS: IBUPROFEN 400 MG TABLET (FP) PO PRN (05:49)
[2022-01-25] MEDS: hydrOXYzine PAMOATE 50 MG CAPSULE (FP) PO PRN ×3 (05:50→19:35)
[2022-01-25] MEDS: methaDONE 40 MG, methaDONE 30 MG PO SCH (05:50)
[2022-01-25] MEDS: NICOTINE 10 MG CARTRIDGE (INHALER) IH PRN (08:21)
[2022-01-25] MEDS: NICOTINE 7 MG/24 HOURS TOPICAL PATCH TD SCH (10:04)
[2022-01-25] MEDS: diazePAM 5 MG TABLET PO SCH (10:05)
[2022-01-25] MEDS: BICTEGRAV/EMTRICIT/TENOFOV (BIKTARVY) 50-200-25 MG TABLET PO SCH (10:05)
[2022-01-25] MEDS: PRENATAL VITAMINS W/ FOLIC ACID TABLET (FP) PO SCH (10:05)
[2022-01-25] MEDS: CITALOPRAM HYDROBROMIDE 20 MG TABLET PO SCH (10:06)
[2022-01-25] MEDS: GABAPENTIN 400 MG CAPSULE PO SCH ×2 (10:06→21:09)
[2022-01-25] MEDS: THIAMINE HCL 100 MG TABLET (FP) PO SCH (21:09)
[2022-01-25] MEDS: OLANZapine 5 MG TABLET PO SCH (21:09)
[2022-01-25] MEDS: MELATONIN 5 MG TABLETS PO SCH (21:09)
[2022-01-25] MEDS: cloNIDine HCL 0.1 MG TABLET PO SCH (21:09)
[2022-01-26] MEDS ORDERED: methaDONE HCL 40 MG DISPERSABLE TABLET ONE (05:53)
[2022-01-26] MEDS ORDERED: methaDONE HCL 10 MG TABLET ONE (05:53)
[2022-01-26] MEDS: methaDONE 40 MG, methaDONE 30 MG PO SCH (05:53)
[2022-01-26] MEDS: IBUPROFEN 400 MG TABLET (FP) PO PRN (07:06)
[2022-01-26] MEDS: PRENATAL VITAMINS W/ FOLIC ACID TABLET (FP) PO SCH (10:23)
[2022-01-26] MEDS: BICTEGRAV/EMTRICIT/TENOFOV (BIKTARVY) 50-200-25 MG TABLET PO SCH (10:23)
[2022-01-26] MEDS: diazePAM 5 MG TABLET PO SCH (10:23)
[2022-01-26] MEDS: GABAPENTIN 400 MG CAPSULE PO SCH ×2 (10:23→21:02)
[2022-01-26] MEDS: CITALOPRAM HYDROBROMIDE 20 MG TABLET PO SCH (10:24)
[2022-01-26] MEDS: hydrOXYzine PAMOATE 50 MG CAPSULE (FP) PO PRN ×2 (10:25→15:46)
[2022-01-26] MEDS: NICOTINE 10 MG CARTRIDGE (INHALER) IH PRN ×2 (10:25→19:08)
[2022-01-26] MEDS: NICOTINE 7 MG/24 HOURS TOPICAL PATCH TD SCH (10:25)
[2022-01-26] MEDS: THIAMINE HCL 100 MG TABLET (FP) PO SCH (21:02)
[2022-01-26] MEDS: MELATONIN 5 MG TABLETS PO SCH (21:02)
[2022-01-26] MEDS: cloNIDine HCL 0.1 MG TABLET PO SCH (21:02)
[2022-01-26] MEDS: OLANZapine 5 MG TABLET PO SCH (21:02)
[2022-01-27] MEDS ORDERED: methaDONE HCL 10 MG TABLET ONE (03:53)
[2022-01-27] MEDS ORDERED: methaDONE HCL 40 MG DISPERSABLE TABLET ONE (03:54)
[2022-01-27] MEDS: methaDONE 40 MG, methaDONE 30 MG PO SCH (05:56)
[2022-01-27] MEDS: NICOTINE 7 MG/24 HOURS TOPICAL PATCH TD SCH (09:47)
[2022-01-27] MEDS: diazePAM 5 MG TABLET PO SCH (09:47)
[2022-01-27] MEDS: GABAPENTIN 400 MG CAPSULE PO SCH ×2 (09:47→21:04)
[2022-01-27] MEDS: CITALOPRAM HYDROBROMIDE 20 MG TABLET PO SCH (09:47)
[2022-01-27] MEDS: hydrOXYzine PAMOATE 50 MG CAPSULE (FP) PO PRN ×2 (09:47→17:37)
[2022-01-27] MEDS: PRENATAL VITAMINS W/ FOLIC ACID TABLET (FP) PO SCH (09:47)
[2022-01-27] MEDS: BICTEGRAV/EMTRICIT/TENOFOV (BIKTARVY) 50-200-25 MG TABLET PO SCH (09:47)
[2022-01-27] MEDS: NICOTINE 10 MG CARTRIDGE (INHALER) IH PRN (09:49)
[2022-01-27] MEDS: THIAMINE HCL 100 MG TABLET (FP) PO SCH (21:05)
[2022-01-27] MEDS: OLANZapine 5 MG TABLET PO SCH (21:05)
[2022-01-27] MEDS: MELATONIN 5 MG TABLETS PO SCH (21:05)
[2022-01-27] MEDS: cloNIDine HCL 0.1 MG TABLET PO SCH (21:05)
[2022-01-27] MEDS: IBUPROFEN 400 MG TABLET (FP) PO PRN (21:06)
[2022-01-28] MEDS ORDERED: methaDONE HCL 10 MG TABLET ONE (03:55)
[2022-01-28] MEDS ORDERED: methaDONE HCL 40 MG DISPERSABLE TABLET ONE (03:55)
[2022-01-28] MEDS: methaDONE 40 MG, methaDONE 30 MG PO SCH (06:17)
[2022-01-28] MEDS: NICOTINE 10 MG CARTRIDGE (INHALER) IH PRN (06:17)
[2022-01-28] MEDS: hydrOXYzine PAMOATE 50 MG CAPSULE (FP) PO PRN ×2 (06:19→17:27)
[2022-01-28] MEDS: BICTEGRAV/EMTRICIT/TENOFOV (BIKTARVY) 50-200-25 MG TABLET PO SCH (09:48)
[2022-01-28] MEDS: GABAPENTIN 400 MG CAPSULE PO SCH ×2 (09:48→21:00)
[2022-01-28] MEDS: PRENATAL VITAMINS W/ FOLIC ACID TABLET (FP) PO SCH (09:48)
[2022-01-28] MEDS: CITALOPRAM HYDROBROMIDE 20 MG TABLET PO SCH (09:48)
[2022-01-28] MEDS: NICOTINE 7 MG/24 HOURS TOPICAL PATCH TD SCH (09:48)
[2022-01-28] MEDS: diazePAM 5 MG TABLET PO SCH (09:48)
[2022-01-28] MEDS: IBUPROFEN 400 MG TABLET (FP) PO PRN (17:27)
[2022-01-28] MEDS: OLANZapine 5 MG TABLET PO SCH (21:00)
[2022-01-28] MEDS: MELATONIN 5 MG TABLETS PO SCH (21:00)
[2022-01-28] MEDS: THIAMINE HCL 100 MG TABLET (FP) PO SCH (21:00)
[2022-01-28] MEDS: cloNIDine HCL 0.1 MG TABLET PO SCH (21:00)
[2022-01-29] MEDS ORDERED: methaDONE HCL 40 MG DISPERSABLE TABLET ONE (04:35)
[2022-01-29] MEDS ORDERED: methaDONE HCL 10 MG TABLET ONE (04:35)
[2022-01-29] MEDS: methaDONE 40 MG, methaDONE 30 MG PO SCH (06:42)
[2022-01-29] MEDS: GABAPENTIN 400 MG CAPSULE PO SCH ×2 (09:47→21:01)
[2022-01-29] MEDS: diazePAM 5 MG TABLET PO SCH (09:47)
[2022-01-29] MEDS: hydrOXYzine PAMOATE 50 MG CAPSULE (FP) PO PRN ×2 (09:47→19:24)
[2022-01-29] MEDS: BICTEGRAV/EMTRICIT/TENOFOV (BIKTARVY) 50-200-25 MG TABLET PO SCH (09:47)
[2022-01-29] MEDS: PRENATAL VITAMINS W/ FOLIC ACID TABLET (FP) PO SCH (09:48)
[2022-01-29] MEDS: NICOTINE 7 MG/24 HOURS TOPICAL PATCH TD SCH (09:48)
[2022-01-29] MEDS: CITALOPRAM HYDROBROMIDE 20 MG TABLET PO SCH (09:48)
[2022-01-29] MEDS: NICOTINE 10 MG CARTRIDGE (INHALER) IH PRN ×2 (09:50→19:21)
[2022-01-29] MEDS: IBUPROFEN 400 MG TABLET (FP) PO PRN (19:24)
[2022-01-29] MEDS: THIAMINE HCL 100 MG TABLET (FP) PO SCH (21:02)
[2022-01-29] MEDS: OLANZapine 5 MG TABLET PO SCH (21:02)
[2022-01-29] MEDS: MELATONIN 5 MG TABLETS PO SCH (21:02)
[2022-01-29] MEDS: cloNIDine HCL 0.1 MG TABLET PO SCH (21:02)
[2022-01-30] MEDS ORDERED: methaDONE HCL 10 MG TABLET ONE (04:02)
[2022-01-30] MEDS ORDERED: methaDONE HCL 40 MG DISPERSABLE TABLET ONE (04:02)
[2022-01-30] MEDS: methaDONE 40 MG, methaDONE 30 MG PO SCH (06:17)
[2022-01-30] MEDS: NICOTINE 10 MG CARTRIDGE (INHALER) IH PRN ×3 (06:19→16:39)
[2022-01-30] MEDS: hydrOXYzine PAMOATE 50 MG CAPSULE (FP) PO PRN ×3 (06:19→16:39)
[2022-01-30] MEDS: CITALOPRAM HYDROBROMIDE 20 MG TABLET PO SCH (09:46)
[2022-01-30] MEDS: diazePAM 5 MG TABLET PO SCH (09:46)
[2022-01-30] MEDS: GABAPENTIN 400 MG CAPSULE PO SCH ×2 (09:46→21:32)
[2022-01-30] MEDS: BICTEGRAV/EMTRICIT/TENOFOV (BIKTARVY) 50-200-25 MG TABLET PO SCH (09:46)
[2022-01-30] MEDS: NICOTINE 7 MG/24 HOURS TOPICAL PATCH TD SCH (09:46)
[2022-01-30] MEDS: PRENATAL VITAMINS W/ FOLIC ACID TABLET (FP) PO SCH (09:46)
[2022-01-30] MEDS: THIAMINE HCL 100 MG TABLET (FP) PO SCH (21:32)
[2022-01-30] MEDS: MELATONIN 5 MG TABLETS PO SCH (21:32)
[2022-01-30] MEDS: OLANZapine 10 MG TABLET PO SCH (21:32)
[2022-01-30] MEDS: cloNIDine HCL 0.1 MG TABLET PO SCH (21:32)
[2022-01-31] MEDS ORDERED: methaDONE HCL 40 MG DISPERSABLE TABLET ONE (03:17)
[2022-01-31] MEDS ORDERED: methaDONE HCL 10 MG TABLET ONE (03:17)
[2022-01-31] MEDS: GABAPENTIN 400 MG CAPSULE PO SCH ×3 (06:24→21:01)
[2022-01-31] MEDS: methaDONE 40 MG, methaDONE 30 MG PO SCH (06:24)
[2022-01-31] MEDS: NICOTINE 10 MG CARTRIDGE (INHALER) IH PRN ×3 (06:42→21:01)
[2022-01-31] MEDS: hydrOXYzine PAMOATE 50 MG CAPSULE (FP) PO PRN ×3 (06:44→18:56)
[2022-01-31] MEDS: diazePAM 5 MG TABLET PO SCH (09:41)
[2022-01-31] MEDS: BICTEGRAV/EMTRICIT/TENOFOV (BIKTARVY) 50-200-25 MG TABLET PO SCH (09:41)
[2022-01-31] MEDS: CITALOPRAM HYDROBROMIDE 20 MG TABLET PO SCH (09:41)
[2022-01-31] MEDS: PRENATAL VITAMINS W/ FOLIC ACID TABLET (FP) PO SCH (09:41)
[2022-01-31] MEDS: NICOTINE 7 MG/24 HOURS TOPICAL PATCH TD SCH (09:42)
[2022-01-31] MEDS: MELATONIN 5 MG TABLETS PO SCH (21:01)
[2022-01-31] MEDS: OLANZapine 10 MG TABLET PO SCH (21:01)
[2022-01-31] MEDS: THIAMINE HCL 100 MG TABLET (FP) PO SCH (21:01)
[2022-01-31] MEDS: cloNIDine HCL 0.1 MG TABLET PO SCH (21:01)
[2022-01-31] MEDS ORDERED: diazePAM 2 MG TABLET PO SCH (22:00)
[2022-02-01] MEDS ORDERED: methaDONE HCL 40 MG DISPERSABLE TABLET ONE (05:24)
[2022-02-01] MEDS ORDERED: methaDONE HCL 10 MG TABLET ONE (05:24)
[2022-02-01] MEDS: methaDONE 40 MG, methaDONE 30 MG PO SCH (05:53)
[2022-02-01] MEDS: GABAPENTIN 400 MG CAPSULE PO SCH ×3 (05:53→21:02)
[2022-02-01] MEDS: hydrOXYzine PAMOATE 50 MG CAPSULE (FP) PO PRN ×3 (05:54→18:37)
[2022-02-01] MEDS: IBUPROFEN 400 MG TABLET (FP) PO PRN ×2 (05:55→18:38)
[2022-02-01] MEDS: CITALOPRAM HYDROBROMIDE 20 MG TABLET PO SCH (09:57)
[2022-02-01] MEDS: PRENATAL VITAMINS W/ FOLIC ACID TABLET (FP) PO SCH (09:57)
[2022-02-01] MEDS: NICOTINE 7 MG/24 HOURS TOPICAL PATCH TD SCH (09:57)
[2022-02-01] MEDS: BICTEGRAV/EMTRICIT/TENOFOV (BIKTARVY) 50-200-25 MG TABLET PO SCH (09:57)
[2022-02-01] MEDS ORDERED: diazePAM 2 MG TABLET PO SCH (10:00)
[2022-02-01] MEDS: THIAMINE HCL 100 MG TABLET (FP) PO SCH (21:02)
[2022-02-01] MEDS: OLANZapine 10 MG TABLET PO SCH (21:02)
[2022-02-01] MEDS: cloNIDine HCL 0.1 MG TABLET PO SCH (21:02)
[2022-02-01] MEDS: MELATONIN 5 MG TABLETS PO SCH (21:02)
[2022-02-02] MEDS ORDERED: methaDONE HCL 40 MG DISPERSABLE TABLET ONE (04:15)
[2022-02-02] MEDS ORDERED: methaDONE HCL 10 MG TABLET ONE (04:15)
[2022-02-02] MEDS: GABAPENTIN 400 MG CAPSULE PO SCH ×3 (06:17→21:02)
[2022-02-02] MEDS: hydrOXYzine PAMOATE 50 MG CAPSULE (FP) PO PRN ×2 (06:19→11:55)
[2022-02-02] MEDS: methaDONE 40 MG, methaDONE 30 MG PO SCH (06:19)
[2022-02-02] MEDS ORDERED: diazePAM 2 MG TABLET PO SCH (10:00)
[2022-02-02] MEDS: CITALOPRAM HYDROBROMIDE 20 MG TABLET PO SCH (10:04)
[2022-02-02] MEDS: BICTEGRAV/EMTRICIT/TENOFOV (BIKTARVY) 50-200-25 MG TABLET PO SCH (10:04)
[2022-02-02] MEDS: NICOTINE 7 MG/24 HOURS TOPICAL PATCH TD SCH (10:04)
[2022-02-02] MEDS: PRENATAL VITAMINS W/ FOLIC ACID TABLET (FP) PO SCH (10:04)
[2022-02-02] MEDS ORDERED: PENICILLIN G BENZATHINE 2,400,000 UNIT/4 ML PFS IM ONE (10:30)
[2022-02-02] MEDS: busPIRone HCL 10 MG TABLET (FP) PO SCH ×2 (14:44→21:02)
[2022-02-02] MEDS: NICOTINE 10 MG CARTRIDGE (INHALER) IH PRN (17:02)
[2022-02-02] MEDS: IBUPROFEN 400 MG TABLET (FP) PO PRN (20:14)
[2022-02-02] MEDS: OLANZapine 10 MG TABLET PO SCH (21:02)
[2022-02-02] MEDS: cloNIDine HCL 0.1 MG TABLET PO SCH (21:02)
[2022-02-02] MEDS: THIAMINE HCL 100 MG TABLET (FP) PO SCH (21:03)
[2022-02-02] MEDS: MELATONIN 5 MG TABLETS PO SCH (21:03)
[2022-02-03] MEDS ORDERED: methaDONE HCL 40 MG DISPERSABLE TABLET ONE (03:48)
[2022-02-03] MEDS ORDERED: methaDONE HCL 10 MG TABLET ONE (03:48)
[2022-02-03] MEDS: busPIRone HCL 10 MG TABLET (FP) PO SCH ×2 (05:59→13:18)
[2022-02-03] MEDS: GABAPENTIN 400 MG CAPSULE PO SCH ×2 (05:59→13:18)
[2022-02-03] MEDS: methaDONE 40 MG, methaDONE 30 MG PO SCH (05:59)
[2022-02-03] MEDS: hydrOXYzine PAMOATE 50 MG CAPSULE (FP) PO PRN ×3 (05:59→15:05)
[2022-02-03 07:19] VITALS: BP 128/78; PULSE 71; TEMP 97.4
[2022-02-03] MEDS: NICOTINE 7 MG/24 HOURS TOPICAL PATCH TD SCH (10:07)
[2022-02-03] MEDS: BICTEGRAV/EMTRICIT/TENOFOV (BIKTARVY) 50-200-25 MG TABLET PO SCH (10:07)
[2022-02-03] MEDS: PRENATAL VITAMINS W/ FOLIC ACID TABLET (FP) PO SCH (10:07)
[2022-02-03] MEDS: CITALOPRAM HYDROBROMIDE 20 MG TABLET PO SCH (10:07)
== END 2022-02-04 00:12 | disposition left against medical advice (07) | DRG 772 ==
LOC: YASAS 11:19 → Y3W 12:36
PROVIDERS: ADMIT Allergy & Immunology; ATTEND Psychiatry & Neurology Pain Medicine
PROC: HZ42ZZZ Group Counseling for Substance Abuse Treatment, Cognitive-Behavioral (ICD-10-PCS; principal; 2022-01-03)
DX: F11.20 Opioid dependence, uncomplicated (principal); F10.20 Alcohol dependence, uncomplicated; F14.20 Cocaine dependence, uncomplicated; F13.20 Sedative, hypnotic or anxiolytic dependence, uncomplicated; F12.20 Cannabis dependence, uncomplicated; F17.210 Nicotine dependence, cigarettes, uncomplicated; F19.280 Other psychoactive substance dependence with psychoactive substance-induced anxiety disorder; F19.282 Other psychoactive substance dependence with psychoactive substance-induced sleep disorder; F25.9 Schizoaffective disorder, unspecified; F31.9 Bipolar disorder, unspecified; F41.9 Anxiety disorder, unspecified; Z21 Asymptomatic human immunodeficiency virus [HIV] infection status; R56.1 Post traumatic seizures; I10 Essential (primary) hypertension; J45.20 Mild intermittent asthma, uncomplicated; A63.0 Anogenital (venereal) warts; Z62.810 Personal history of physical and sexual abuse in childhood; Z87.820 Personal history of traumatic brain injury; Z91.410 Personal history of adult physical and sexual abuse
CPT/HCPCS: 36415; 81003; 86803; 93005; 93010; C9803-CS; J0735; U0003; U0005

== ENCOUNTER 2023-06-14 12:33 | Inpatient (IN) | payer OTHER ==
[2023-06-14 13:30] VITALS: BMI 27.3
[2023-06-14] MEDS ORDERED: NALOXONE HCL (KLOXXADO) 8 MG SPRAY NS PRN (17:27)
[2023-06-14] MEDS ORDERED: P-EPHED 60MG/TRIPROLIDI 2.5MG TABLET PO PRN (17:27)
[2023-06-14] MEDS ORDERED: LOPERAMIDE HCL 2 MG CAPSULE PO PRN (17:27)
[2023-06-14] MEDS ORDERED: IBUPROFEN 400 MG TABLET (FP) PO PRN (17:27)
[2023-06-14] MEDS ORDERED: NALOXONE HCL 0.4 MG/ML VIAL IM PRN (17:27)
[2023-06-14] MEDS ORDERED: BENZOCAINE/MENTHOL (CHLORASEPTIC ) LOZENGE MM PRN (17:27)
[2023-06-14] MEDS ORDERED: COLLOIDAL OATMEAL 1 BAR EACH TP PRN (17:27)
[2023-06-14] MEDS ORDERED: POLYETHYLENE GLYCOL (HEALTHYLAX) 3350 17 GM PACKET PO PRN (17:27)
[2023-06-14] MEDS ORDERED: MAG HYDROX/AL HYDROX/SIMETH 30 ML UNIT-DOSE CUP PO PRN (17:27)
[2023-06-14] MEDS ORDERED: guaiFENesin 600 MG TABLET.ER (FP) PO PRN (17:27)
[2023-06-14] MEDS ORDERED: BENZONATATE 200 MG CAPSULE PO PRN (17:27)
[2023-06-14] MEDS ORDERED: MAGNESIUM HYDROX 2400MG/30ML ORAL SUSPENSION 30 ML CUP PO PRN (17:27)
[2023-06-14] MEDS ORDERED: ALBUTEROL SO4 HFA INHALER IH PRN (18:38)
[2023-06-14] MEDS ORDERED: ALBUTEROL SO4 HFA INHALER IH ONE (18:42)
[2023-06-14] MEDS: THIAMINE HCL 100 MG TABLET (FP) PO SCH (21:17)
[2023-06-14] MEDS ORDERED: MELATONIN 5 MG TABLETS PO SCH (22:00)
[2023-06-15 09:02] LABS: URINE APPEARANCE CLEAR; URINE BILIRUBIN NEGATIVE (NEGATIVE); URINE COLOR YELLOW; URINE GLUCOSE (UA) NEGATIVE (NEGATIVE); URINE KETONE NEGATIVE (NEGATIVE); URINE LEUK ESTERASE NEGATIVE (NEGATIVE); URINE NITRITE NEGATIVE (NEGATIVE); URINE PROTEIN NEGATIVE (NEGATIVE); URINE UROBILINOGEN 0.2 mg/dL (0.2-1.0)
[2023-06-15 09:09] LABS: HEMATOCRIT 40.5 % (35.4-49); HEMOGLOBIN 13.6 GM/dL (11.7-16.9); MCH 29.7 pg (25.7-33.7); MCHC 33.6 g/dl (32.0-35.9); MEAN CELL VOLUME 88.4 fl (80-96); MEAN PLT VOLUME 7.9 fl (7.5-11.1); PLATELET COUNT 431 10^3/uL (134-434); RBC 4.58 M/mm3 (4.00-5.60); RDW 13.4 % (11.9-15.9); WHITE BLOOD COUNT 5.6 K/mm3 (4.0-10.0)
[2023-06-15] MEDS: PRENATAL VITAMINS W/ FOLIC ACID TABLET (FP) PO SCH (09:09)
[2023-06-15] MEDS: GABAPENTIN 100 MG CAPSULE PO SCH ×3 (09:09→21:11)
[2023-06-15 09:17] LABS: CHLORIDE 106 mmol/L (98-107); POTASSIUM 4.2 mmol/L (3.5-5.1); SODIUM 138 mmol/L (136-145)
[2023-06-15 09:37] LABS: ALBUMIN 3.5 g/dl (3.4-5.0); BLOOD UREA NITROGEN 8.8 mg/dL (7-18); GLUCOSE,RANDOM 100 mg/dL (74-106)
[2023-06-15 09:38] LABS: ANION GAP 6 mmol/L (4-13); CO2 25 mmol/L (21-32)
[2023-06-15 09:40] LABS: CREATININE 0.8 mg/dL (0.55-1.3); SGPT/ALT 31 U/L (13-61)
[2023-06-15 09:41] LABS: SGOT/AST 20 U/L (15-37)
[2023-06-15 09:42] LABS: BILIRUBIN,TOTAL 0.4 mg/dL (0.2-1); TOT PROT 7.5 g/dl (6.4-8.2)
[2023-06-15 09:43] LABS: ALK PHOS 57 U/L (45-117)
[2023-06-15] MEDS ORDERED: methaDONE HCL 10 MG TABLET PO ONE (10:00)
[2023-06-15] MEDS: METHOCARBAMOL 500 MG TABLET PO PRN ×2 (10:07→21:11)
[2023-06-15] MEDS: IBUPROFEN 600 MG TABLET (FP) PO PRN (10:07)
[2023-06-15] MEDS: hydrOXYzine PAMOATE 25 MG CAPSULE (FP) PO PRN ×2 (10:07→21:11)
[2023-06-15 12:55] LABS: SYPHILIS W/ RPR CONF REACTIVE (NONREACTIVE)
[2023-06-15] MEDS: THIAMINE HCL 100 MG TABLET (FP) PO SCH (21:11)
[2023-06-15] MEDS: OLANZapine 10 MG TABLET PO SCH (21:13)
[2023-06-16] MEDS ORDERED: methaDONE HCL 10 MG TABLET PO ONE (06:00)
[2023-06-16] MEDS: GABAPENTIN 100 MG CAPSULE PO SCH ×3 (06:33→21:12)
[2023-06-16] MEDS: PRENATAL VITAMINS W/ FOLIC ACID TABLET (FP) PO SCH (10:02)
[2023-06-16] MEDS: cloNIDine HCL 0.1 MG TABLET PO PRN (12:06)
[2023-06-16] MEDS: METHOCARBAMOL 500 MG TABLET PO PRN ×2 (12:07→21:12)
[2023-06-16] MEDS: OLANZapine 10 MG TABLET PO SCH (21:11)
[2023-06-16] MEDS: THIAMINE HCL 100 MG TABLET (FP) PO SCH (21:12)
[2023-06-17] MEDS: GABAPENTIN 100 MG CAPSULE PO SCH ×3 (06:12→21:46)
[2023-06-17] MEDS: PRENATAL VITAMINS W/ FOLIC ACID TABLET (FP) PO SCH (09:09)
[2023-06-17] MEDS ORDERED: methaDONE HCL 10 MG TABLET PO SCH (10:00)
[2023-06-17] MEDS: methaDONE 40 MG, methaDONE 20 MG PO SCH (10:09)
[2023-06-17] MEDS: OLANZapine 10 MG TABLET PO SCH (21:46)
[2023-06-17] MEDS: THIAMINE HCL 100 MG TABLET (FP) PO SCH (21:47)
[2023-06-18] MEDS: GABAPENTIN 100 MG CAPSULE PO SCH ×2 (06:11→13:55)
[2023-06-18] MEDS: methaDONE 40 MG, methaDONE 20 MG PO SCH (06:12)
[2023-06-18] MEDS: PRENATAL VITAMINS W/ FOLIC ACID TABLET (FP) PO SCH (09:08)
[2023-06-18] MEDS: cloNIDine HCL 0.1 MG TABLET PO PRN (09:12)
[2023-06-18] MEDS: METHOCARBAMOL 500 MG TABLET PO PRN ×2 (09:12→21:23)
[2023-06-18] MEDS: BICTEGRAV/EMTRICIT/TENOFOV (BIKTARVY) 50-200-25 MG TABLET PO SCH (10:56)
[2023-06-18] MEDS ORDERED: DICYCLOMINE HCL 10 MG CAPSULE PO PRN (11:53)
[2023-06-18] MEDS ORDERED: ONDANSETRON *ODT* 4 MG TABLET SL PRN (11:53)
[2023-06-18] MEDS ORDERED: BENZONATATE 200 MG CAPSULE PO PRN (11:53)
[2023-06-18] MEDS ORDERED: AMMONIUM LACTATE 12% LOTION 225 GM BOTTLE TP PRN (11:53)
[2023-06-18] MEDS ORDERED: guaiFENesin 600 MG TABLET.ER (FP) PO PRN (11:53)
[2023-06-18] MEDS: NICOTINE 21 MG/24 HOURS TOPICAL PATCH TD SCH (12:30)
[2023-06-18] MEDS: THIAMINE HCL 100 MG TABLET (FP) PO SCH (21:23)
[2023-06-18] MEDS: GABAPENTIN 300 MG CAPSULE PO SCH (21:24)
[2023-06-18] MEDS ORDERED: OLANZapine 10 MG TABLET PO SCH (22:00)
[2023-06-19] MEDS: GABAPENTIN 300 MG CAPSULE PO SCH ×3 (06:24→21:35)
[2023-06-19] MEDS: methaDONE 40 MG, methaDONE 20 MG PO SCH (06:24)
[2023-06-19] MEDS: BICTEGRAV/EMTRICIT/TENOFOV (BIKTARVY) 50-200-25 MG TABLET PO SCH (07:02)
[2023-06-19] MEDS: PRENATAL VITAMINS W/ FOLIC ACID TABLET (FP) PO SCH (09:56)
[2023-06-19] MEDS: NICOTINE 21 MG/24 HOURS TOPICAL PATCH TD SCH (09:56)
[2023-06-19] MEDS: ARIPiprazole 5 MG TABLET PO SCH (09:57)
[2023-06-19] MEDS: METHOCARBAMOL 500 MG TABLET PO PRN ×2 (09:57→21:35)
[2023-06-19] MEDS: cloNIDine HCL 0.1 MG TABLET PO PRN (11:02)
[2023-06-19] MEDS: hydrOXYzine PAMOATE 25 MG CAPSULE (FP) PO PRN (16:46)
[2023-06-19] MEDS: THIAMINE HCL 100 MG TABLET (FP) PO SCH (21:35)
[2023-06-20] MEDS: methaDONE 40 MG, methaDONE 20 MG PO SCH (06:11)
[2023-06-20] MEDS: GABAPENTIN 300 MG CAPSULE PO SCH ×3 (06:11→21:35)
[2023-06-20] MEDS: BICTEGRAV/EMTRICIT/TENOFOV (BIKTARVY) 50-200-25 MG TABLET PO SCH (07:43)
[2023-06-20] MEDS: NICOTINE 21 MG/24 HOURS TOPICAL PATCH TD SCH (09:57)
[2023-06-20] MEDS: ARIPiprazole 5 MG TABLET PO SCH (09:57)
[2023-06-20] MEDS: METHOCARBAMOL 500 MG TABLET PO PRN (09:58)
[2023-06-20] MEDS: PRENATAL VITAMINS W/ FOLIC ACID TABLET (FP) PO SCH (10:00)
[2023-06-20] MEDS: THIAMINE HCL 100 MG TABLET (FP) PO SCH (21:34)
[2023-06-21] MEDS: methaDONE 40 MG, methaDONE 20 MG PO SCH (06:12)
[2023-06-21] MEDS: GABAPENTIN 300 MG CAPSULE PO SCH ×3 (06:12→21:32)
[2023-06-21] MEDS: BICTEGRAV/EMTRICIT/TENOFOV (BIKTARVY) 50-200-25 MG TABLET PO SCH (07:15)
[2023-06-21] MEDS ORDERED: ARIPiprazole 5 MG TABLET ONE (10:07)
[2023-06-21] MEDS: NICOTINE 21 MG/24 HOURS TOPICAL PATCH TD SCH (10:08)
[2023-06-21] MEDS: PRENATAL VITAMINS W/ FOLIC ACID TABLET (FP) PO SCH (10:08)
[2023-06-21] MEDS: ARIPiprazole 10 MG TABLET PO SCH (10:08)
[2023-06-21] MEDS: cloNIDine HCL 0.1 MG TABLET PO PRN (17:32)
[2023-06-21] MEDS: THIAMINE HCL 100 MG TABLET (FP) PO SCH (21:32)
[2023-06-22] MEDS: methaDONE 40 MG, methaDONE 20 MG PO SCH (06:08)
[2023-06-22] MEDS: GABAPENTIN 300 MG CAPSULE PO SCH ×3 (06:08→21:03)
[2023-06-22] MEDS: BICTEGRAV/EMTRICIT/TENOFOV (BIKTARVY) 50-200-25 MG TABLET PO SCH (07:38)
[2023-06-22] MEDS ORDERED: ARIPiprazole 5 MG TABLET ONE (08:05)
[2023-06-22] MEDS: PRENATAL VITAMINS W/ FOLIC ACID TABLET (FP) PO SCH (09:30)
[2023-06-22] MEDS: ARIPiprazole 10 MG TABLET PO SCH (09:30)
[2023-06-22] MEDS: NICOTINE 21 MG/24 HOURS TOPICAL PATCH TD SCH (09:31)
[2023-06-22] MEDS: THIAMINE HCL 100 MG TABLET (FP) PO SCH (21:03)
[2023-06-23] MEDS: GABAPENTIN 300 MG CAPSULE PO SCH ×3 (06:12→21:24)
[2023-06-23] MEDS: methaDONE 40 MG, methaDONE 20 MG PO SCH (06:12)
[2023-06-23] MEDS: BICTEGRAV/EMTRICIT/TENOFOV (BIKTARVY) 50-200-25 MG TABLET PO SCH (07:33)
[2023-06-23] MEDS ORDERED: ARIPiprazole 5 MG TABLET ONE (08:08)
[2023-06-23] MEDS: NICOTINE 21 MG/24 HOURS TOPICAL PATCH TD SCH (09:50)
[2023-06-23] MEDS: PRENATAL VITAMINS W/ FOLIC ACID TABLET (FP) PO SCH (09:50)
[2023-06-23] MEDS: ARIPiprazole 10 MG TABLET PO SCH (09:50)
[2023-06-23] MEDS: THIAMINE HCL 100 MG TABLET (FP) PO SCH (21:23)
[2023-06-23] MEDS ORDERED: INSULIN (LEVEMIR) 100 UNITS/ML UNITS SQ ONE (21:33)
[2023-06-23] MEDS ORDERED: INSULIN (NOVOLOG) ASPART 100 UNITS/ML 10ML VIAL ONE (21:33)
[2023-06-24] MEDS: methaDONE 40 MG, methaDONE 20 MG PO SCH (06:12)
[2023-06-24] MEDS: GABAPENTIN 300 MG CAPSULE PO SCH ×3 (06:12→21:18)
[2023-06-24] MEDS: BICTEGRAV/EMTRICIT/TENOFOV (BIKTARVY) 50-200-25 MG TABLET PO SCH (07:15)
[2023-06-24] MEDS ORDERED: ARIPiprazole 5 MG TABLET ONE (08:39)
[2023-06-24] MEDS: cloNIDine HCL 0.1 MG TABLET PO PRN (09:01)
[2023-06-24] MEDS: ARIPiprazole 10 MG TABLET PO SCH (09:53)
[2023-06-24] MEDS: PRENATAL VITAMINS W/ FOLIC ACID TABLET (FP) PO SCH (09:53)
[2023-06-24] MEDS: NICOTINE 21 MG/24 HOURS TOPICAL PATCH TD SCH (09:53)
[2023-06-24] MEDS: THIAMINE HCL 100 MG TABLET (FP) PO SCH (21:18)
[2023-06-25] MEDS: methaDONE 40 MG, methaDONE 10 MG PO SCH (06:20)
[2023-06-25] MEDS: GABAPENTIN 300 MG CAPSULE PO SCH ×3 (06:20→21:11)
[2023-06-25] MEDS: hydrOXYzine PAMOATE 25 MG CAPSULE (FP) PO PRN ×2 (06:21→21:11)
[2023-06-25] MEDS: BICTEGRAV/EMTRICIT/TENOFOV (BIKTARVY) 50-200-25 MG TABLET PO SCH (07:55)
[2023-06-25] MEDS ORDERED: ARIPiprazole 5 MG TABLET ONE (08:24)
[2023-06-25] MEDS: ARIPiprazole 10 MG TABLET PO SCH (09:34)
[2023-06-25] MEDS: NICOTINE 21 MG/24 HOURS TOPICAL PATCH TD SCH (09:34)
[2023-06-25] MEDS: PRENATAL VITAMINS W/ FOLIC ACID TABLET (FP) PO SCH (09:34)
[2023-06-25] MEDS ORDERED: methaDONE HCL 40 MG DISPERSABLE TABLET PO SCH (10:00)
[2023-06-25] MEDS: cloNIDine HCL 0.1 MG TABLET PO PRN (21:10)
[2023-06-25] MEDS: THIAMINE HCL 100 MG TABLET (FP) PO SCH (21:11)
[2023-06-26] MEDS: GABAPENTIN 300 MG CAPSULE PO SCH ×3 (06:11→21:18)
[2023-06-26] MEDS: methaDONE 40 MG, methaDONE 10 MG PO SCH (06:11)
[2023-06-26] MEDS: BICTEGRAV/EMTRICIT/TENOFOV (BIKTARVY) 50-200-25 MG TABLET PO SCH (07:39)
[2023-06-26] MEDS: hydrOXYzine PAMOATE 25 MG CAPSULE (FP) PO PRN ×2 (09:34→21:18)
[2023-06-26] MEDS: PRENATAL VITAMINS W/ FOLIC ACID TABLET (FP) PO SCH (09:34)
[2023-06-26] MEDS: NICOTINE 21 MG/24 HOURS TOPICAL PATCH TD SCH (09:35)
[2023-06-26] MEDS: ARIPiprazole 10 MG TABLET PO SCH (09:35)
[2023-06-26] MEDS: THIAMINE HCL 100 MG TABLET (FP) PO SCH (21:18)
[2023-06-27] MEDS: GABAPENTIN 300 MG CAPSULE PO SCH ×3 (06:10→21:12)
[2023-06-27] MEDS: methaDONE HCL 40 MG DISPERSABLE TABLET PO SCH (06:10)
[2023-06-27] MEDS: BICTEGRAV/EMTRICIT/TENOFOV (BIKTARVY) 50-200-25 MG TABLET PO SCH (07:31)
[2023-06-27] MEDS ORDERED: ARIPiprazole 5 MG TABLET ONE (08:35)
[2023-06-27] MEDS: ARIPiprazole 10 MG TABLET PO SCH (09:37)
[2023-06-27] MEDS: NICOTINE 21 MG/24 HOURS TOPICAL PATCH TD SCH (09:37)
[2023-06-27] MEDS: PRENATAL VITAMINS W/ FOLIC ACID TABLET (FP) PO SCH (09:37)
[2023-06-27] MEDS: cloNIDine HCL 0.1 MG TABLET PO PRN (15:22)
[2023-06-27] MEDS: THIAMINE HCL 100 MG TABLET (FP) PO SCH (21:12)
[2023-06-27] MEDS: hydrOXYzine PAMOATE 25 MG CAPSULE (FP) PO PRN (21:12)
[2023-06-28] MEDS: methaDONE HCL 40 MG DISPERSABLE TABLET PO SCH (06:10)
[2023-06-28] MEDS: GABAPENTIN 300 MG CAPSULE PO SCH ×3 (06:10→21:10)
[2023-06-28] MEDS: BICTEGRAV/EMTRICIT/TENOFOV (BIKTARVY) 50-200-25 MG TABLET PO SCH (07:21)
[2023-06-28] MEDS: NICOTINE 21 MG/24 HOURS TOPICAL PATCH TD SCH (09:41)
[2023-06-28] MEDS: ARIPiprazole 10 MG TABLET PO SCH (09:41)
[2023-06-28] MEDS: PRENATAL VITAMINS W/ FOLIC ACID TABLET (FP) PO SCH (09:41)
[2023-06-28] MEDS: hydrOXYzine PAMOATE 25 MG CAPSULE (FP) PO PRN ×2 (09:42→21:10)
[2023-06-28] MEDS: cloNIDine HCL 0.1 MG TABLET PO PRN (10:57)
[2023-06-28] MEDS: THIAMINE HCL 100 MG TABLET (FP) PO SCH (21:09)
[2023-06-29] MEDS: methaDONE HCL 10 MG TABLET PO SCH (06:09)
[2023-06-29] MEDS: GABAPENTIN 300 MG CAPSULE PO SCH ×3 (06:09→21:30)
[2023-06-29] MEDS: BICTEGRAV/EMTRICIT/TENOFOV (BIKTARVY) 50-200-25 MG TABLET PO SCH (07:40)
[2023-06-29] MEDS: PRENATAL VITAMINS W/ FOLIC ACID TABLET (FP) PO SCH (09:46)
[2023-06-29] MEDS: ARIPiprazole 10 MG TABLET PO SCH (09:46)
[2023-06-29] MEDS: NICOTINE 21 MG/24 HOURS TOPICAL PATCH TD SCH (09:46)
[2023-06-29] MEDS: busPIRone HCL 5 MG TABLET PO SCH ×2 (10:20→21:30)
[2023-06-29] MEDS: cloNIDine HCL 0.1 MG TABLET PO PRN (17:35)
[2023-06-29] MEDS: THIAMINE HCL 100 MG TABLET (FP) PO SCH (21:30)
[2023-06-30] MEDS: methaDONE HCL 10 MG TABLET PO SCH (06:18)
[2023-06-30] MEDS: GABAPENTIN 300 MG CAPSULE PO SCH ×3 (06:18→21:11)
[2023-06-30] MEDS: BICTEGRAV/EMTRICIT/TENOFOV (BIKTARVY) 50-200-25 MG TABLET PO SCH (07:08)
[2023-06-30] MEDS: NICOTINE 21 MG/24 HOURS TOPICAL PATCH TD SCH (09:24)
[2023-06-30] MEDS: busPIRone HCL 5 MG TABLET PO SCH ×2 (09:24→21:10)
[2023-06-30] MEDS: ARIPiprazole 10 MG TABLET PO SCH (09:24)
[2023-06-30] MEDS: PRENATAL VITAMINS W/ FOLIC ACID TABLET (FP) PO SCH (09:25)
[2023-06-30] MEDS: cloNIDine HCL 0.1 MG TABLET PO PRN (17:08)
[2023-06-30] MEDS: THIAMINE HCL 100 MG TABLET (FP) PO SCH (21:11)
[2023-07-01] MEDS: methaDONE HCL 10 MG TABLET PO SCH (06:19)
[2023-07-01] MEDS: GABAPENTIN 300 MG CAPSULE PO SCH ×3 (06:20→21:03)
[2023-07-01] MEDS: BICTEGRAV/EMTRICIT/TENOFOV (BIKTARVY) 50-200-25 MG TABLET PO SCH (07:54)
[2023-07-01] MEDS: PRENATAL VITAMINS W/ FOLIC ACID TABLET (FP) PO SCH (09:54)
[2023-07-01] MEDS: ARIPiprazole 10 MG TABLET PO SCH (09:54)
[2023-07-01] MEDS: NICOTINE 21 MG/24 HOURS TOPICAL PATCH TD SCH (09:54)
[2023-07-01] MEDS: busPIRone HCL 5 MG TABLET PO SCH ×2 (09:55→21:03)
[2023-07-01] MEDS: cloNIDine HCL 0.1 MG TABLET PO PRN (13:17)
[2023-07-01] MEDS: THIAMINE HCL 100 MG TABLET (FP) PO SCH (21:03)
[2023-07-01] MEDS: IBUPROFEN 600 MG TABLET (FP) PO PRN (21:04)
[2023-07-02] MEDS: GABAPENTIN 300 MG CAPSULE PO SCH ×3 (06:15→21:07)
[2023-07-02] MEDS: methaDONE HCL 10 MG TABLET PO SCH (06:15)
[2023-07-02] MEDS: BICTEGRAV/EMTRICIT/TENOFOV (BIKTARVY) 50-200-25 MG TABLET PO SCH (07:11)
[2023-07-02] MEDS: ARIPiprazole 10 MG TABLET PO SCH (09:48)
[2023-07-02] MEDS: PRENATAL VITAMINS W/ FOLIC ACID TABLET (FP) PO SCH (09:49)
[2023-07-02] MEDS: NICOTINE 21 MG/24 HOURS TOPICAL PATCH TD SCH (09:49)
[2023-07-02] MEDS: busPIRone HCL 5 MG TABLET PO SCH ×2 (09:49→21:07)
[2023-07-02] MEDS: cloNIDine HCL 0.1 MG TABLET PO PRN (16:33)
[2023-07-02] MEDS: THIAMINE HCL 100 MG TABLET (FP) PO SCH (21:06)
[2023-07-03] MEDS: methaDONE HCL 10 MG TABLET PO SCH (06:07)
[2023-07-03] MEDS: GABAPENTIN 300 MG CAPSULE PO SCH ×3 (06:07→21:00)
[2023-07-03] MEDS: BICTEGRAV/EMTRICIT/TENOFOV (BIKTARVY) 50-200-25 MG TABLET PO SCH (07:20)
[2023-07-03] MEDS: NICOTINE POLACRILEX 4 MG GUM BUC PRN (08:57)
[2023-07-03] MEDS: PRENATAL VITAMINS W/ FOLIC ACID TABLET (FP) PO SCH (09:53)
[2023-07-03] MEDS: ARIPiprazole 10 MG TABLET PO SCH (09:53)
[2023-07-03] MEDS: NICOTINE 21 MG/24 HOURS TOPICAL PATCH TD SCH (09:53)
[2023-07-03] MEDS: cloNIDine HCL 0.1 MG TABLET PO PRN (13:08)
[2023-07-03] MEDS: THIAMINE HCL 100 MG TABLET (FP) PO SCH (20:59)
[2023-07-04] MEDS ORDERED: methaDONE HCL 10 MG TABLET PO SCH (06:00)
[2023-07-04] MEDS: GABAPENTIN 300 MG CAPSULE PO SCH ×3 (06:15→21:06)
[2023-07-04] MEDS: BICTEGRAV/EMTRICIT/TENOFOV (BIKTARVY) 50-200-25 MG TABLET PO SCH (07:41)
[2023-07-04] MEDS: cloNIDine HCL 0.1 MG TABLET PO PRN (08:54)
[2023-07-04] MEDS: NICOTINE 21 MG/24 HOURS TOPICAL PATCH TD SCH (09:49)
[2023-07-04] MEDS: PRENATAL VITAMINS W/ FOLIC ACID TABLET (FP) PO SCH (09:49)
[2023-07-04] MEDS: ARIPiprazole 10 MG TABLET PO SCH (09:49)
[2023-07-04] MEDS: ACETAMINOPHEN 325 MG TABLET (FP) PO PRN (11:12)
[2023-07-04] MEDS ORDERED: BENZONATATE 200 MG CAPSULE PO PRN (12:19)
[2023-07-04] MEDS ORDERED: guaiFENesin 600 MG TABLET.ER (FP) PO PRN (12:19)
[2023-07-04] MEDS ORDERED: DICYCLOMINE HCL 10 MG CAPSULE PO PRN (12:19)
[2023-07-04] MEDS ORDERED: BISMUTH SUBSALICYLATE 262 MG/15 ML BTL PO PRN (12:19)
[2023-07-04] MEDS: METHOCARBAMOL 500 MG TABLET PO PRN ×2 (13:05→21:06)
[2023-07-04] MEDS: MELATONIN 5 MG TABLETS PO SCH (21:06)
[2023-07-04] MEDS: THIAMINE HCL 100 MG TABLET (FP) PO SCH (21:06)
[2023-07-04] MEDS: IBUPROFEN 600 MG TABLET (FP) PO PRN (21:07)
[2023-07-05] MEDS: cloNIDine HCL 0.1 MG TABLET PO PRN ×2 (06:09→21:05)
[2023-07-05] MEDS: GABAPENTIN 300 MG CAPSULE PO SCH ×3 (06:09→21:05)
[2023-07-05] MEDS: METHOCARBAMOL 500 MG TABLET PO PRN ×2 (06:09→21:05)
[2023-07-05] MEDS: BICTEGRAV/EMTRICIT/TENOFOV (BIKTARVY) 50-200-25 MG TABLET PO SCH (07:55)
[2023-07-05] MEDS ORDERED: BUPRENORPHINE HCL 150 MCG, BUPRENORPHINE HCL 75 MCG BC PRN (07:57)
[2023-07-05] MEDS ORDERED: cloNIDine HCL 0.1 MG TABLET PO ONE (07:57)
[2023-07-05] MEDS ORDERED: BUPRENORPHINE HCL 150 MCG, BUPRENORPHINE HCL 75 MCG BC ONE (07:57)
[2023-07-05] MEDS: NICOTINE 21 MG/24 HOURS TOPICAL PATCH TD SCH (09:47)
[2023-07-05] MEDS: ARIPiprazole 10 MG TABLET PO SCH (09:47)
[2023-07-05] MEDS: PRENATAL VITAMINS W/ FOLIC ACID TABLET (FP) PO SCH (09:47)
[2023-07-05] MEDS ORDERED: cloNIDine HCL 0.1 MG TABLET PO PRN (11:57)
[2023-07-05] MEDS: NICOTINE POLACRILEX 4 MG GUM BUC PRN (17:39)
[2023-07-05] MEDS: THIAMINE HCL 100 MG TABLET (FP) PO SCH (21:05)
[2023-07-05] MEDS: ACETAMINOPHEN 325 MG TABLET (FP) PO PRN (21:06)
[2023-07-05] MEDS: MELATONIN 5 MG TABLETS PO SCH (21:50)
[2023-07-06] MEDS ORDERED: BUPRENORPHINE HCL 150 MCG, BUPRENORPHINE HCL 75 MCG BC PRN
[2023-07-06] MEDS: GABAPENTIN 300 MG CAPSULE PO SCH ×3 (06:09→21:16)
[2023-07-06] MEDS: BUPRENORPHINE HCL 150 MCG, BUPRENORPHINE HCL 75 MCG BC SCH ×2 (06:09→17:16)
[2023-07-06] MEDS: METHOCARBAMOL 500 MG TABLET PO PRN ×2 (06:11→21:16)
[2023-07-06] MEDS: BICTEGRAV/EMTRICIT/TENOFOV (BIKTARVY) 50-200-25 MG TABLET PO SCH (07:52)
[2023-07-06] MEDS: ARIPiprazole 10 MG TABLET PO SCH (09:14)
[2023-07-06] MEDS: cloNIDine HCL 0.1 MG TABLET PO PRN (09:14)
[2023-07-06] MEDS: PRENATAL VITAMINS W/ FOLIC ACID TABLET (FP) PO SCH (09:14)
[2023-07-06] MEDS: NICOTINE 21 MG/24 HOURS TOPICAL PATCH TD SCH (09:14)
[2023-07-06] MEDS: THIAMINE HCL 100 MG TABLET (FP) PO SCH (21:16)
[2023-07-06] MEDS: MELATONIN 5 MG TABLETS PO SCH (21:16)
[2023-07-06] MEDS: IBUPROFEN 600 MG TABLET (FP) PO PRN (21:17)
[2023-07-07] MEDS: BUPRENORPHINE HCL 450 MCG FILM BC SCH ×2 (05:52→17:15)
[2023-07-07] MEDS: GABAPENTIN 300 MG CAPSULE PO SCH ×3 (05:53→22:09)
[2023-07-07] MEDS: BICTEGRAV/EMTRICIT/TENOFOV (BIKTARVY) 50-200-25 MG TABLET PO SCH (07:16)
[2023-07-07] MEDS: PRENATAL VITAMINS W/ FOLIC ACID TABLET (FP) PO SCH (09:35)
[2023-07-07] MEDS: NICOTINE 21 MG/24 HOURS TOPICAL PATCH TD SCH (09:35)
[2023-07-07] MEDS: ARIPiprazole 10 MG TABLET PO SCH (09:36)
[2023-07-07] MEDS: METHOCARBAMOL 500 MG TABLET PO PRN (09:36)
[2023-07-07] MEDS: cloNIDine HCL 0.1 MG TABLET PO PRN (09:37)
[2023-07-07] MEDS: MELATONIN 5 MG TABLETS PO SCH (22:09)
[2023-07-07] MEDS: THIAMINE HCL 100 MG TABLET (FP) PO SCH (22:09)
[2023-07-07] MEDS: IBUPROFEN 600 MG TABLET (FP) PO PRN (22:09)
[2023-07-08] MEDS: GABAPENTIN 300 MG CAPSULE PO SCH (05:02)
[2023-07-08] MEDS ORDERED: BUPRENORPHINE/NALOXONE 4 MG/1 MG FILM PACKET SL SCH (06:00)
[2023-07-08] MEDS: BICTEGRAV/EMTRICIT/TENOFOV (BIKTARVY) 50-200-25 MG TABLET PO SCH (07:33)
[2023-07-08] MEDS: PRENATAL VITAMINS W/ FOLIC ACID TABLET (FP) PO SCH (09:12)
[2023-07-08] MEDS: ARIPiprazole 10 MG TABLET PO SCH (09:13)
[2023-07-08] MEDS: NICOTINE 21 MG/24 HOURS TOPICAL PATCH TD SCH (09:13)
[2023-07-08 10:00] VITALS: BP 149/83; PULSE 89; RESP 18; TEMP 97.3
[2023-07-09] MEDS ORDERED: BUPRENORPHINE/NALOXONE 8 MG/2 MG FILM PACKET SL ONE (06:00)
[2023-07-09] MEDS ORDERED: BUPRENORPHINE/NALOXONE 8 MG/2 MG FILM PACKET SL SCH (10:00)
== END 2023-07-08 10:15 | disposition home or self-care (01) | DRG 772 ==
LOC: YASAS 12:33 → Y3E 17:33 → Y6N 07-07 09:24
PROVIDERS: ADMIT Allergy & Immunology; ATTEND Psychiatry & Neurology Pain Medicine
PROC: HZ42ZZZ Group Counseling for Substance Abuse Treatment, Cognitive-Behavioral (ICD-10-PCS; principal; 2023-06-14)
DX: F11.20 Opioid dependence, uncomplicated (principal); F15.20 Other stimulant dependence, uncomplicated; F13.20 Sedative, hypnotic or anxiolytic dependence, uncomplicated; F12.20 Cannabis dependence, uncomplicated; F17.210 Nicotine dependence, cigarettes, uncomplicated; F19.282 Other psychoactive substance dependence with psychoactive substance-induced sleep disorder; F25.9 Schizoaffective disorder, unspecified; F43.10 Post-traumatic stress disorder, unspecified; F41.9 Anxiety disorder, unspecified; Z21 Asymptomatic human immunodeficiency virus [HIV] infection status; G62.9 Polyneuropathy, unspecified; I10 Essential (primary) hypertension; M54.50 Low back pain, unspecified; G89.29 Other chronic pain; Z62.810 Personal history of physical and sexual abuse in childhood; Z86.19 Personal history of other infectious and parasitic diseases; Z88.8 Allergy status to other drugs, medicaments and biological substances; T14.90XA Injury, unspecified, initial encounter; Y04.0XXA Assault by unarmed brawl or fight, initial encounter; Y92.230 Patient room in hospital as the place of occurrence of the external cause
CPT/HCPCS: 36415; 80053; 80307; 81003; 85027; 86593; 86780; 86803; 87635

== ENCOUNTER 2024-05-08 13:35 | Inpatient (IN) | payer OTHER ==
[2024-05-08 15:33] VITALS: BMI 22.9
[2024-05-08] MEDS ORDERED: P-EPHED 60MG/TRIPROLIDI 2.5MG TABLET PO PRN (18:07)
[2024-05-08] MEDS ORDERED: ONDANSETRON *ODT* 4 MG TABLET SL PRN (18:07)
[2024-05-08] MEDS ORDERED: NALOXONE (NYS OPIOID OVERDOSE PROGRAM) 4 MG/0.1 ML SPRAY NS PRN (18:07)
[2024-05-08] MEDS ORDERED: NICOTINE POLACRILEX 2 MG GUM BUC PRN (18:07)
[2024-05-08] MEDS ORDERED: ACETAMINOPHEN 325 MG TABLET (FP) PO PRN (18:07)
[2024-05-08] MEDS ORDERED: LOPERAMIDE HCL 2 MG CAPSULE PO PRN (18:07)
[2024-05-08] MEDS ORDERED: MAGNESIUM HYDROX 2400MG/30ML ORAL SUSPENSION 30 ML CUP PO PRN (18:07)
[2024-05-08] MEDS ORDERED: DICYCLOMINE HCL 10 MG CAPSULE PO PRN (18:07)
[2024-05-08] MEDS ORDERED: POLYETHYLENE GLYCOL (HEALTHYLAX) 3350 17 GM PACKET PO PRN (18:07)
[2024-05-08] MEDS ORDERED: NICOTINE POLACRILEX 2 MG LOZENGE BC PRN (18:07)
[2024-05-08] MEDS ORDERED: BENZOCAINE/MENTHOL (CHLORASEPTIC ) LOZENGE MM PRN (18:07)
[2024-05-08] MEDS ORDERED: BENZONATATE 200 MG CAPSULE PO PRN (18:07)
[2024-05-08] MEDS ORDERED: BISMUTH SUBSALICYLATE 524 MG/30 ML PO PRN (18:07)
[2024-05-08] MEDS ORDERED: guaiFENesin 600 MG TABLET.ER (FP) PO PRN (18:07)
[2024-05-08] MEDS ORDERED: NALOXONE (NARCAN) HCL 4 MG/0.1 ML SPRAY NS PRN (18:07)
[2024-05-08] MEDS ORDERED: IBUPROFEN 400 MG TABLET (FP) PO PRN (18:07)
[2024-05-08] MEDS ORDERED: IBUPROFEN 600 MG TABLET (FP) PO PRN (18:07)
[2024-05-08] MEDS: THIAMINE 100 MG TABLET PO SCH (21:18)
[2024-05-08] MEDS: clonazePAM 0.5 MG ODT TABLETS SL PRN (21:18)
[2024-05-08] MEDS: MELATONIN 5 MG TABLETS PO SCH (21:18)
[2024-05-08] MEDS: METHOCARBAMOL 500 MG TABLET PO PRN (21:18)
[2024-05-09] MEDS: BICTEGRAV/EMTRICIT/TENOFOV (BIKTARVY) 50-200-25 MG TABLET PO SCH (08:02)
[2024-05-09 09:43] LABS: HEMATOCRIT 35.7 % (35.4-49); HEMOGLOBIN 11.6 GM/dL (11.7-16.9); MCH 27.7 pg (25.7-33.7); MCHC 32.4 g/dl (32.0-35.9); MEAN CELL VOLUME 85.5 fl (80-96); MEAN PLT VOLUME 8.2 fl (7.5-11.1); PLATELET COUNT 362 10^3/uL (134-434); RBC 4.17 M/mm3 (4.00-5.60); RDW 15.2 % (11.9-15.9)
[2024-05-09 09:53] LABS: CHLORIDE 109 mmol/L (98-107); POTASSIUM 4.4 mmol/L (3.5-5.1); SODIUM 140 mmol/L (136-145)
[2024-05-09 09:56] LABS: CALCIUM 8.5 mg/dL (8.5-10.1)
[2024-05-09] MEDS: ALBUTEROL SO4 HFA INHALER IH PRN (09:56)
[2024-05-09 09:57] LABS: ALBUMIN 2.6 g/dl (3.4-5.0); ANION GAP 5 mmol/L (4-13); BLOOD UREA NITROGEN 15.2 mg/dL (7-18); CO2 26 mmol/L (21-32); GLUCOSE,RANDOM 92 mg/dL (74-106)
[2024-05-09] MEDS: ARIPiprazole 10 MG TABLET PO SCH (09:57)
[2024-05-09] MEDS: GABAPENTIN 300 MG CAPSULE PO SCH (09:57)
[2024-05-09] MEDS: PRENATAL VITAMINS W/ FOLIC ACID TABLET (FP) PO SCH (09:57)
[2024-05-09 10:00] LABS: CREATININE 0.8 mg/dL (0.55-1.3); SGOT/AST 22 U/L (15-37); SGPT/ALT 24 U/L (13-61)
[2024-05-09 10:01] LABS: BILIRUBIN,TOTAL < 0.1 mg/dL (0.2-1)
[2024-05-09 10:03] LABS: ALK PHOS 70 U/L (45-117)
[2024-05-10] MEDS: methaDONE HCL 10 MG TABLET (FOR DETOX USE ONLY) PO ONE (09:51)
[2024-05-10] MEDS: cloNIDine HCL 0.1 MG TABLET PO PRN (17:31)
[2024-05-11] MEDS: MAG HYDROX/AL HYDROX/SIMETH 30 ML UNIT-DOSE CUP PO PRN (06:13)
[2024-05-11] MEDS ORDERED: ARIPiprazole 5 MG TABLET ONE (09:06)
[2024-05-12] MEDS: methaDONE HCL 10 MG TABLET (FOR DETOX USE ONLY) PO ONE (09:50)
[2024-05-12] MEDS: diazePAM 5 MG TABLET PO PRN (11:00)
[2024-05-12] MEDS: QUEtiapine FUMARATE 25 MG TABLET PO SCH (22:08)
[2024-05-13 08:44] VITALS: BP 134/75; PULSE 83; RESP 16; TEMP 97.5
[2024-05-13] MEDS: hydrOXYzine PAMOATE 25 MG CAPSULE (FP) PO ONE (11:21)
== END 2024-05-13 11:02 | disposition home or self-care (01) | DRG 773 ==
LOC: YASAS 13:35 → Y3N 20:06
PROVIDERS: ADMIT Allergy & Immunology; ATTEND Surgery
PROC: HZ2ZZZZ Detoxification Services for Substance Abuse Treatment (ICD-10-PCS; principal; 2024-05-08)
DX: F11.23 Opioid dependence with withdrawal (principal); F15.20 Other stimulant dependence, uncomplicated; F17.210 Nicotine dependence, cigarettes, uncomplicated; F25.9 Schizoaffective disorder, unspecified; F31.9 Bipolar disorder, unspecified; F43.10 Post-traumatic stress disorder, unspecified; F41.9 Anxiety disorder, unspecified; Z21 Asymptomatic human immunodeficiency virus [HIV] infection status; J45.909 Unspecified asthma, uncomplicated; Z62.810 Personal history of physical and sexual abuse in childhood; Z91.410 Personal history of adult physical and sexual abuse; Z63.0 Problems in relationship with spouse or partner; Z63.8 Other specified problems related to primary support group; Z79.899 Other long term (current) drug therapy; Z88.8 Allergy status to other drugs, medicaments and biological substances
CPT/HCPCS: 36415; 80053; 80305; 80307; 85027; 86593; 86780; 93005; 93010